=== PATIENT | female | born 1950 | race Hispanic/Latino ===

== ENCOUNTER → 2018-02-06 | Outpatient (CLI) | payer OTHER, MEDICARE ==
[~2018-02-06] MED LIST: BUPR150T8 PO; GABA-531 PO; IBUP-2070 PO; LEVO500T2 PO; LEVO88TA4 PO; PANT40TA25 PO; PRED10TA3 PO; SENN15TA PO
== END | disposition home or self-care (01) ==
LOC: RAH 08:38
PROVIDERS: ATTEND Family Medicine
DX: Z12.31 Encounter for screening mammogram for malignant neoplasm of breast (principal); I10 Essential (primary) hypertension; E11.9 Type 2 diabetes mellitus without complications; E78.00 Pure hypercholesterolemia, unspecified; E03.9 Hypothyroidism, unspecified
CPT/HCPCS: 77067

== ENCOUNTER → 2019-07-09 | Outpatient (CLI) | payer OTHER, MEDICARE | END | disposition home or self-care (01) | LOC: RAH 10:16 | PROVIDERS: ATTEND Family Medicine | DX: Z12.31 Encounter for screening mammogram for malignant neoplasm of breast (principal) | CPT/HCPCS: 77067 ==

== ENCOUNTER 2020-02-23 13:08 | Emergency (ER) | payer OTHER, MEDICARE ==
[~2020-02-23 13:08] MED LIST changes: -PANT40TA25 PO; +PANT40TA54 PO
[2020-02-23] MEDS ORDERED: SODIUM CHLORIDE 0.9% 500ML 500 ML IV ONE (13:45)
[2020-02-23] MEDS ORDERED: ONDANSETRON HCL 4 MG/2 ML VIAL ONE (13:45)
[2020-02-23 13:54] LABS: BASOPHILS % (AUTO) 1.1 % (0.0-5.0); HEMATOCRIT 37.3 % (36-48); LYMPHOCYTES % (AUTO) 34.6 % (21.0-51.0); MEAN CORPUSCULAR HEMOGLOBIN 29.6 pg (27.0-33.0); MEAN CORPUSCULAR HGB CONC 32.7 g/dL (32.0-36.0); MEAN CORPUSCULAR VOLUME 90.5 fL (79-99); PLATELET COUNT (AUTO) 247 K/uL (130-400); RED BLOOD CELL COUNT(AUTO) 4.12 MIL/uL (4.00-5.50); RED CELL DISTRIBUTION WIDTH 14.8 % (11.0-15.5); WHITE BLOOD COUNT (AUTO) 9.6 K/uL (4.8-10.8)
[2020-02-23 13:59] LABS: INR 0.96 (0.85-1.15); PARTIAL THROMBOPLASTIN TIME 26.8 SEC (26.3-35.5); PROTHROMBIN TIME 10.4 SEC (9.6-11.6)
[2020-02-23 14:09] LABS: ALBUMIN 3.3 g/dL (3.5-5.0); BILIRUBIN,DIRECT 0.1 mg/dL (0.0-0.3); BILIRUBIN,TOTAL 0.2 mg/dL (0.2-1.0); CREATININE 0.7 mg/dL (0.5-1.5); POTASSIUM 3.3 mmol/L (3.5-5.1); TOTAL PROTEIN, SERUM 7.5 g/dL (6.0-8.3)
[2020-02-23 14:15] LABS: APPEARANCE,URINE Clear (CLEAR); BILIRUBIN,URINE Negative (NEGATIVE); COLOR,URINE Yellow (YELLOW); GLUCOSE, URINE (UA) Negative (NEGATIVE); KETONES,URINE Negative (NEGATIVE); LEUKOCYTE ESTERASE ,URINE Trace (NEGATIVE); NITRATE,URINE Negative (NEGATIVE); OCCULT BLOOD,URINE Negative (NEGATIVE); PROTEIN,URINE Negative (NEGATIVE)
[2020-02-23 14:30] LABS: RBC,URINE 0-1 /HPF (0-1)
[2020-02-23 14:31] LABS: BACTERIA,URINE Few /HPF (None Seen); MUCUS,URINE Rare LPF (None Seen); SQUAMOUS EPITHELIAL CELL,UR Few /HPF (0-2)
== END 2020-02-23 15:03 | disposition home or self-care (01) ==
LOC: EDH 13:08
DX: R10.9 Unspecified abdominal pain (principal); R11.2 Nausea with vomiting, unspecified; M19.90 Unspecified osteoarthritis, unspecified site
CPT/HCPCS: 36415; 74176; 80048; 80076; 81001; 82550; 83690; 84484; 85025; 85610; 85730; 93005; 96360; 99285; J2405; J7040

== ENCOUNTER → 2020-12-20 | Outpatient (CLI) | payer OTHER, MEDICARE | END | disposition home or self-care (01) | LOC: RAH 09:41 | PROVIDERS: ATTEND Family Medicine | DX: Z12.31 Encounter for screening mammogram for malignant neoplasm of breast (principal) | CPT/HCPCS: 77067 ==

== ENCOUNTER 2021-07-31 01:36 | Inpatient (IN) | payer OTHER, MEDICARE ==
[~2021-07-31] VITALS: Ht 152.4 cm; Wt 58.3 kg
[2021-07-31] MEDS ORDERED: ONDANSETRON 4MG INJ ONE (02:12)
[2021-07-31] MEDS ORDERED: MORPHINE 4 MG SYG IV ONE (02:30)
[2021-07-31] MEDS: ZOSYN 3.375GM +NS 50ML IV SCH ×3 (02:30→18:12)
[2021-07-31] MEDS ORDERED: ONDANSETRON 4MG INJ IVP ONE (02:30)
[2021-07-31 02:32] LABS: BASOPHILS % (AUTO) 0.7 % (0.0-5.0); EOSINOPHILS % (AUTO) 5.4 % (0.0-8.0); HEMATOCRIT 44.9 % (36-48); LYMPHOCYTES % (AUTO) 37.5 % (21.0-51.0); MEAN CORPUSCULAR HEMOGLOBIN 31.6 pg (27.0-33.0); MEAN CORPUSCULAR HGB CONC 33.2 g/dL (32.0-36.0); MEAN CORPUSCULAR VOLUME 95.3 fL (79-99); MONOCYTES % (AUTO) 5.4 % (3.0-13.0); NEUTROPHILS % (AUTO) 50.6 % (40.0-77.0); PLATELET COUNT (AUTO) 292 K/uL (130-400); RED BLOOD CELL COUNT(AUTO) 4.71 MIL/uL (4.00-5.50); RED CELL DISTRIBUTION WIDTH 13.1 % (11.0-15.5); WHITE BLOOD COUNT (AUTO) 13.5 K/uL (4.8-10.8)
[2021-07-31] MEDS ORDERED: MORPHINE 4 MG SYG ONE (02:39)
[2021-07-31] MEDS ORDERED: ZOSYN 3.375GM+NS 50ML 50 ML ONE (02:39)
[2021-07-31] MEDS ORDERED: METRONIDAZOLE 500MG/100ML BAG 100 ML ONE (02:39)
[2021-07-31 02:43] LABS: APPEARANCE,URINE Clear (CLEAR); BILIRUBIN,URINE Negative (NEGATIVE); COLOR,URINE Yellow (YELLOW); GLUCOSE, URINE (UA) Negative (NEGATIVE); KETONES,URINE Negative (NEGATIVE); LEUKOCYTE ESTERASE ,URINE Negative (NEGATIVE); NITRATE,URINE Negative (NEGATIVE); OCCULT BLOOD,URINE Trace (NEGATIVE); PH,URINE 7.5 (5.0-8.0); PROTEIN,URINE Negative (NEGATIVE); UROBILINOGEN,URINE 0.2 mg/dL (0.2-1.0)
[2021-07-31 02:58] LABS: BACTERIA,URINE Few /HPF (None Seen); SQUAMOUS EPITHELIAL CELL,UR 0-2 /HPF (0-2); WBC,URINE 0-1 /HPF (0-1)
[2021-07-31] MEDS: METRONIDAZOLE 500MG/100ML BAG 100 ML IVPB SCH ×3 (03:03→22:52)
[2021-07-31 03:30] LABS: CREATININE 0.6 mg/dL (0.5-1.5); POTASSIUM 3.1 mmol/L (3.5-5.1)
[2021-07-31 03:34] LABS: ALBUMIN 3.6 g/dL (3.5-5.0); BILIRUBIN,TOTAL 0.3 mg/dL (0.2-1.0); TOTAL PROTEIN, SERUM 7.6 g/dL (6.0-8.3)
[2021-07-31] MEDS ORDERED: KETOROLAC 30MG VIAL (30MG/ML) ONE (04:44)
[2021-07-31] MEDS ORDERED: KETOROLAC 30MG VIAL (30MG/ML) IV ONE (05:00)
[2021-07-31] MEDS ORDERED: POTASSIUM CHLORIDE 10MEQ/100ML 10 MEQ/100 ML ML IV STA (05:31)
[2021-07-31] MEDS ORDERED: LACTATED RINGERS 1000ML 1,000 ML IV ONE (05:38)
[2021-07-31] MEDS ORDERED: POTASSIUM CHLORIDE 10MEQ/100ML 100 ML IV ONE (05:38)
[2021-07-31] MEDS: LACTATED RINGERS 1000ML 1,000 ML IV SCH ×4 (05:52→16:30)
[2021-07-31] MEDS ORDERED: POTASSIUM CHLORIDE 20MEQ/100ML 100 ML IV PRN (06:00)
[2021-07-31] MEDS ORDERED: MAGNESIUM 2GM PREMIX 50ML 50 ML IV PRN (06:00)
[2021-07-31] MEDS ORDERED: GLUCAGON 1MG KIT 1 MG ML IM PRN (06:00)
[2021-07-31] MEDS ORDERED: DEXTROSE 50%-WATER 50 ML DISP.SYRIN IV PRN (06:00)
[2021-07-31] MEDS ORDERED: HYDRALAZINE 20MG/ML VIAL IV PRN (06:30)
[2021-07-31] MEDS ORDERED: ACETAMINOPHEN 325 MG TAB PO PRN ×2 (06:30)
[2021-07-31] MEDS ORDERED: ONDANSETRON 4MG INJ IV PRN (06:30)
[2021-07-31] MEDS ORDERED: NITROGLYCERIN 0.4 MG SL TAB SL PRN (06:30)
[2021-07-31] MEDS ORDERED: ACETAMINOPHEN 650 MG SUPPOSITORY RC PRN (06:30)
[2021-07-31] MEDS ORDERED: LABETALOL 20MG SYG IV PRN (06:30)
[2021-07-31] MEDS ORDERED: POTASSIUM CHLORIDE 10% ELIXIR 20 MEQ/15 ML UDCUP NG ONE (07:00)
[2021-07-31] MEDS: INSULIN HUMULIN R 100 UNIT/ML 3ML SQ SCH ×4 (07:24→20:33)
[2021-07-31] MEDS: LEVOTHYROXINE 88 MCG TABLET PO SCH (08:12)
[2021-07-31] MEDS: PANTOPRAZOLE 40 MG/VIAL IVP SCH ×2 (08:22→20:33)
[2021-07-31 09:14] LABS: BASOPHILS % (AUTO) 0.8 % (0.0-5.0); EOSINOPHILS % (AUTO) 5.7 % (0.0-8.0); HEMATOCRIT 38.9 % (36-48); LYMPHOCYTES % (AUTO) 27.8 % (21.0-51.0); MEAN CORPUSCULAR HEMOGLOBIN 31.4 pg (27.0-33.0); MEAN CORPUSCULAR HGB CONC 32.9 g/dL (32.0-36.0); MEAN CORPUSCULAR VOLUME 95.3 fL (79-99); MONOCYTES % (AUTO) 5.9 % (3.0-13.0); NEUTROPHILS % (AUTO) 59.5 % (40.0-77.0); PLATELET COUNT (AUTO) 243 K/uL (130-400); RED BLOOD CELL COUNT(AUTO) 4.08 MIL/uL (4.00-5.50); RED CELL DISTRIBUTION WIDTH 13.1 % (11.0-15.5); WHITE BLOOD COUNT (AUTO) 11.5 K/uL (4.8-10.8)
[2021-07-31 09:42] LABS: CREATININE 0.6 mg/dL (0.5-1.5); POTASSIUM 4.7 mmol/L (3.5-5.1); THYROID STIMULATING HORMONE 1.73 uIU/mL (0.36-3.74)
[2021-07-31 10:30] VITALS: BP 133/63
[2021-07-31] MEDS ORDERED: KETOROLAC 15MG/ML VIAL (15MG/ML) ONE (11:05)
[2021-07-31] MEDS: KETOROLAC 15MG/ML VIAL (15MG/ML) IV PRN ×2 (11:08→18:52)
[2021-07-31] MEDS ORDERED: HYDROMORPHONE 0.5 MG SYG (0.5MG/0.5ML) IVP PRN (12:00)
[2021-07-31 16:27] VITALS: BP 133/59
[2021-07-31 20:00] VITALS: BP 130/59
[2021-07-31] MEDS: METOCLOPRAMIDE 10 MG/2 ML VIAL IVP SCH (20:33)
[2021-07-31] MEDS: DEXTROSE 5 %-0.45 % NACL 1,000 ML IV SCH (20:34)
[2021-07-31 23:27] VITALS: BP 143/57
[2021-08-01] MEDS: ZOSYN 3.375GM +NS 50ML IV SCH ×3 (02:48→19:05)
[2021-08-01 04:00] VITALS: BP 139/62
[2021-08-01 05:05] LABS: BASOPHILS % (AUTO) 0.9 % (0.0-5.0); EOSINOPHILS % (AUTO) 5.7 % (0.0-8.0); HEMATOCRIT 37.2 % (36-48); LYMPHOCYTES % (AUTO) 25.4 % (21.0-51.0); MEAN CORPUSCULAR HEMOGLOBIN 30.4 pg (27.0-33.0); MEAN CORPUSCULAR HGB CONC 33.1 g/dL (32.0-36.0); MEAN CORPUSCULAR VOLUME 92.1 fL (79-99); MONOCYTES % (AUTO) 5.1 % (3.0-13.0); NEUTROPHILS % (AUTO) 62.6 % (40.0-77.0); PLATELET COUNT (AUTO) 228 K/uL (130-400); RED BLOOD CELL COUNT(AUTO) 4.04 MIL/uL (4.00-5.50); RED CELL DISTRIBUTION WIDTH 12.9 % (11.0-15.5)
[2021-08-01 05:22] LABS: ALBUMIN 3.1 g/dL (3.5-5.0); BILIRUBIN,TOTAL 0.4 mg/dL (0.2-1.0); CREATININE 0.5 mg/dL (0.5-1.5); POTASSIUM 3.5 mmol/L (3.5-5.1); TOTAL PROTEIN, SERUM 6.7 g/dL (6.0-8.3)
[2021-08-01] MEDS: INSULIN HUMULIN R 100 UNIT/ML 3ML SQ SCH ×4 (06:22→20:54)
[2021-08-01] MEDS: LEVOTHYROXINE 88 MCG TABLET PO SCH (06:22)
[2021-08-01] MEDS: METRONIDAZOLE 500MG/100ML BAG 100 ML IVPB SCH ×3 (06:23→21:45)
[2021-08-01 08:00] VITALS: BP 118/63
[2021-08-01] MEDS: METOCLOPRAMIDE 10 MG/2 ML VIAL IVP SCH ×2 (10:10→20:47)
[2021-08-01] MEDS: PANTOPRAZOLE 40 MG/VIAL IVP SCH ×2 (10:10→20:47)
[2021-08-01] MEDS ORDERED: QUETIAPINE FUMARATE 25 MG TAB PO PRN (11:30)
[2021-08-01 11:45] VITALS: BP 137/60
[2021-08-01 16:00] VITALS: BP 123/62
[2021-08-01 20:00] VITALS: BP 139/62
[2021-08-01] MEDS: DEXTROSE 5 %-0.45 % NACL 1,000 ML IV SCH (21:45)
[2021-08-02] VITALS (18 sets, daily range): BP systolic 112–144; BP diastolic 50–96
[2021-08-02] MEDS: ZOSYN 3.375GM +NS 50ML IV SCH ×3 (03:04→18:30)
[2021-08-02 05:14] LABS: EOSINOPHILS % (AUTO) 8.4 % (0.0-8.0); LYMPHOCYTES % (AUTO) 19.5 % (21.0-51.0); MEAN CORPUSCULAR HEMOGLOBIN 30.1 pg (27.0-33.0); MEAN CORPUSCULAR HGB CONC 32.3 g/dL (32.0-36.0); MEAN CORPUSCULAR VOLUME 93.5 fL (79-99); MONOCYTES % (AUTO) 6.3 % (3.0-13.0); NEUTROPHILS % (AUTO) 64.6 % (40.0-77.0); PLATELET COUNT (AUTO) 226 K/uL (130-400); RED BLOOD CELL COUNT(AUTO) 4.28 MIL/uL (4.00-5.50); RED CELL DISTRIBUTION WIDTH 12.8 % (11.0-15.5); WHITE BLOOD COUNT (AUTO) 10.1 K/uL (4.8-10.8)
[2021-08-02] MEDS: LEVOTHYROXINE 88 MCG TABLET PO SCH (05:30)
[2021-08-02 05:32] LABS: ALBUMIN 3.2 g/dL (3.5-5.0); BILIRUBIN,TOTAL 0.5 mg/dL (0.2-1.0); CREATININE 0.6 mg/dL (0.5-1.5); POTASSIUM 3.1 mmol/L (3.5-5.1); TOTAL PROTEIN, SERUM 6.9 g/dL (6.0-8.3)
[2021-08-02] MEDS: METRONIDAZOLE 500MG/100ML BAG 100 ML IVPB SCH ×2 (05:33→15:52)
[2021-08-02] MEDS: INSULIN HUMULIN R 100 UNIT/ML 3ML SQ SCH ×4 (06:19→23:58)
[2021-08-02] MEDS: DEXTROSE 5 %-0.45 % NACL 1,000 ML IV SCH (11:00)
[2021-08-02] MEDS: PANTOPRAZOLE 40 MG/VIAL IVP SCH (11:51)
[2021-08-02] MEDS: METOCLOPRAMIDE 10 MG/2 ML VIAL IVP SCH ×2 (11:52→23:54)
[2021-08-02] MEDS ORDERED: LACTATED RINGERS 1000ML 1,000 ML IV ONE (18:46)
[2021-08-02] MEDS ORDERED: MIDAZOLAM HCL 1 MG/ML 2ML VIAL ONE (19:02)
[2021-08-02] MEDS ORDERED: ROCURONIUM 10MG/1ML SYR 10 MG/ML ML ONE (19:02)
[2021-08-02] MEDS ORDERED: PROPOFOL 10 MG/ML 20ML VIAL IV ONE (19:02)
[2021-08-02] MEDS ORDERED: FENTANYL CITRATE PF 50 MCG/1 ML 5ML AMP IV ONE (19:02)
[2021-08-02] MEDS ORDERED: SUCCINYLCHOLINE CHLORIDE 20 MG/ML 10 ML VIAL ONE (19:02)
[2021-08-02] MEDS ORDERED: EPHEDRINE SULFATE 50 MG/ML AMPULE ONE (19:23)
[2021-08-02] MEDS ORDERED: ROPIVACAINE 0.5% 5MG/ML 30ML IJ ONE (21:25)
[2021-08-02] MEDS: LACTATED RINGERS 1000ML 1,000 ML IV SCH (22:00)
[2021-08-02] MEDS ORDERED: ESMOLOL HCL 10 MG/ML 10 ML VIAL ONE (22:14)
[2021-08-02] MEDS ORDERED: MORPHINE PCA 50MG/50ML NS IV SCH (23:00)
[2021-08-03] VITALS (11 sets, daily range): BP systolic 102–134; BP diastolic 51–71
[2021-08-03] MEDS: DEXTROSE 5 %-0.45 % NACL 1,000 ML IV SCH (00:20)
[2021-08-03] MEDS: ZOSYN 3.375GM +NS 50ML IV SCH ×3 (03:23→17:35)
[2021-08-03] MEDS ORDERED: POTASSIUM CHLORIDE 10MEQ/100ML 10 MEQ/100 ML ML IV SCH (03:30)
[2021-08-03] MEDS: INSULIN HUMULIN R 100 UNIT/ML 3ML SQ SCH ×3 (06:17→16:30)
[2021-08-03] MEDS: LEVOTHYROXINE 100MCG VIAL IV SCH (06:17)
[2021-08-03] MEDS: LACTATED RINGERS 1000ML 1,000 ML IV SCH ×3 (06:27→18:19)
[2021-08-03] MEDS: POTASSIUM CHLORIDE 10MEQ/100ML 100 ML IV PRN (06:28)
[2021-08-03] MEDS: LIDOCAINE HCL-MPF 1% 2ML VIAL IJ PRN (06:28)
[2021-08-03] MEDS: FAMOTIDINE 20MG VIAL IV SCH ×2 (10:03→20:30)
[2021-08-03] MEDS: METOCLOPRAMIDE 10 MG/2 ML VIAL IVP SCH ×2 (10:04→20:30)
[2021-08-03] MEDS: HEPARIN 5,000 UNIT VIAL SQ SCH ×2 (10:04→20:38)
[2021-08-03 12:00] LABS: HEMATOCRIT 36.3 % (36-48); MEAN CORPUSCULAR HEMOGLOBIN 30.9 pg (27.0-33.0); MEAN CORPUSCULAR HGB CONC 32.5 g/dL (32.0-36.0); PLATELET COUNT (AUTO) 232 K/uL (130-400); RED BLOOD CELL COUNT(AUTO) 3.82 MIL/uL (4.00-5.50); RED CELL DISTRIBUTION WIDTH 13.1 % (11.0-15.5); WHITE BLOOD COUNT (AUTO) 15.4 K/uL (4.8-10.8)
[2021-08-03] MEDS ORDERED: LACTATED RINGERS 1000ML IV SCH (12:00)
[2021-08-03 12:09] LABS: CREATININE 0.8 mg/dL (0.5-1.5); MAGNESIUM 1.9 mg/dL (1.80-2.40); POTASSIUM 3.5 mmol/L (3.5-5.1)
[2021-08-03 12:41] LABS: INR 1.21 (0.85-1.15)
[2021-08-03 12:51] LABS: BAND NEUTROPHILS % (MANUAL) 4 % (0-2); LYMPHOCYTES % (MANUAL) 10 % (22-44); MAN.DIFF COMMENT-IMPRESSION MANUAL DIFFERENTIAL; MONOCYTES % (MANUAL) 1 % (2-9); PLATELET MORPHOLOGY COMMENT ADEQUATE; SEGMENTED NEUTROPHILS % 85 % (40-70)
[2021-08-04] MEDS: ZOSYN 3.375GM +NS 50ML IV SCH ×3 (02:06→20:12)
[2021-08-04] MEDS: LACTATED RINGERS 1000ML 1,000 ML IV SCH ×3 (03:37→21:27)
[2021-08-04 04:48] VITALS: BP 152/68
[2021-08-04 05:10] LABS: HEMATOCRIT 29.8 % (36-48); MEAN CORPUSCULAR HEMOGLOBIN 31.7 pg (27.0-33.0); MEAN CORPUSCULAR HGB CONC 33.2 g/dL (32.0-36.0); MEAN CORPUSCULAR VOLUME 95.5 fL (79-99); RED BLOOD CELL COUNT(AUTO) 3.12 MIL/uL (4.00-5.50); RED CELL DISTRIBUTION WIDTH 13.2 % (11.0-15.5); WHITE BLOOD COUNT (AUTO) 11.6 K/uL (4.8-10.8)
[2021-08-04 05:22] LABS: CREATININE 0.5 mg/dL (0.5-1.5); MAGNESIUM 2.4 mg/dL (1.80-2.40); PHOSPHORUS 1.8 mg/dL (2.5-4.9)
[2021-08-04] MEDS: INSULIN HUMULIN R 100 UNIT/ML 3ML SQ SCH ×3 (05:39→12:00)
[2021-08-04] MEDS: LEVOTHYROXINE 100MCG VIAL IV SCH (06:27)
[2021-08-04] MEDS: POTASSIUM CHLORIDE 10MEQ/100ML 100 ML IV PRN ×3 (06:28→21:32)
[2021-08-04 07:00] VITALS: BP 141/58
[2021-08-04] MEDS: FAMOTIDINE 20MG VIAL IV SCH ×2 (09:40→20:12)
[2021-08-04] MEDS: METOCLOPRAMIDE 10 MG/2 ML VIAL IVP SCH ×2 (09:40→20:13)
[2021-08-04] MEDS: HEPARIN 5,000 UNIT VIAL SQ SCH ×2 (09:42→20:22)
[2021-08-04 12:20] VITALS: BP 140/59
[2021-08-04 16:00] VITALS: BP 140/62
[2021-08-04] MEDS: LIDOCAINE HCL-MPF 1% 2ML VIAL IJ PRN (17:07)
[2021-08-04 20:52] VITALS: BP 157/63
[2021-08-05 00:37] VITALS: BP 144/68
[2021-08-05] MEDS: LACTATED RINGERS 1000ML 1,000 ML IV SCH (01:07)
[2021-08-05] MEDS: ZOSYN 3.375GM +NS 50ML IV SCH ×3 (02:15→18:25)
[2021-08-05 04:59] VITALS: BP 150/65
[2021-08-05 05:28] LABS: HEMATOCRIT 28.2 % (36-48); MEAN CORPUSCULAR HEMOGLOBIN 31.1 pg (27.0-33.0); MEAN CORPUSCULAR VOLUME 94.3 fL (79-99); RED BLOOD CELL COUNT(AUTO) 2.99 MIL/uL (4.00-5.50); RED CELL DISTRIBUTION WIDTH 12.7 % (11.0-15.5); WHITE BLOOD COUNT (AUTO) 11.4 K/uL (4.8-10.8)
[2021-08-05 05:47] LABS: CREATININE 0.4 mg/dL (0.5-1.5); POTASSIUM 3.1 mmol/L (3.5-5.1)
[2021-08-05] MEDS: LEVOTHYROXINE 100MCG VIAL IV SCH (05:50)
[2021-08-05] MEDS: POTASSIUM CHLORIDE 10MEQ/100ML 100 ML IV PRN (05:50)
[2021-08-05] MEDS: INSULIN HUMULIN R 100 UNIT/ML 3ML SQ SCH ×5 (05:51→20:28)
[2021-08-05 08:00] VITALS: BP 139/59
[2021-08-05] MEDS: HEPARIN 5,000 UNIT VIAL SQ SCH ×2 (10:15→21:05)
[2021-08-05] MEDS: METOCLOPRAMIDE 10 MG/2 ML VIAL IVP SCH ×2 (10:16→20:39)
[2021-08-05] MEDS: FAMOTIDINE 20MG VIAL IV SCH ×2 (10:17→20:39)
[2021-08-05] MEDS ORDERED: IBUPROFEN 600 MG TABLET PO PRN (10:30)
[2021-08-05] MEDS ORDERED: POTASSIUM CHLORIDE 20MEQ/100ML 100 ML IV PRN (10:30)
[2021-08-05] MEDS ORDERED: TRAMADOL HCL 50 MG TABLET PO PRN ×2 (10:30)
[2021-08-05] MEDS ORDERED: ACETAMINOPHEN 325 MG TAB PO PRN (10:30)
[2021-08-05] MEDS ORDERED: KCL 20 MEQ ERTAB PO PRN (10:30)
[2021-08-05] MEDS ORDERED: LIDOCAINE HCL-MPF 1% 2ML VIAL IV PRN (10:30)
[2021-08-05 12:00] VITALS: BP 145/60
[2021-08-05 16:00] VITALS: BP 147/62
[2021-08-05] MEDS: POTASSIUM CHLORIDE 10% ELIXIR 20 MEQ/15 ML UDCUP PO PRN (16:16)
[2021-08-05 20:00] VITALS: BP 149/52
[2021-08-06] VITALS: BP 131/57
[2021-08-06] MEDS: ZOSYN 3.375GM +NS 50ML IV SCH ×3 (02:16→19:12)
[2021-08-06 04:00] VITALS: BP 126/61
[2021-08-06 05:18] LABS: HEMATOCRIT 29.3 % (36-48); MEAN CORPUSCULAR HEMOGLOBIN 30.7 pg (27.0-33.0); MEAN CORPUSCULAR HGB CONC 33.1 g/dL (32.0-36.0); MEAN CORPUSCULAR VOLUME 92.7 fL (79-99); RED BLOOD CELL COUNT(AUTO) 3.16 MIL/uL (4.00-5.50); RED CELL DISTRIBUTION WIDTH 12.6 % (11.0-15.5)
[2021-08-06 05:32] LABS: CREATININE 0.4 mg/dL (0.5-1.5)
[2021-08-06] MEDS: POTASSIUM CHLORIDE 10MEQ/100ML 100 ML IV PRN (06:14)
[2021-08-06] MEDS: LEVOTHYROXINE 100MCG VIAL IV SCH (06:30)
[2021-08-06] MEDS: INSULIN HUMULIN R 100 UNIT/ML 3ML SQ SCH ×4 (07:03→20:58)
[2021-08-06 08:00] VITALS: BP_SYST 122; BP_SYST 141; BP_DIAS 53; BP_DIAS 74
[2021-08-06] MEDS: POTASSIUM CHLORIDE 10% ELIXIR 20 MEQ/15 ML UDCUP PO PRN ×2 (09:56→20:30)
[2021-08-06] MEDS: FAMOTIDINE 20MG VIAL IV SCH ×2 (09:57→20:29)
[2021-08-06] MEDS: METOCLOPRAMIDE 10 MG/2 ML VIAL IVP SCH ×2 (09:57→20:29)
[2021-08-06] MEDS: POLYETHYLENE GLYCOL 3350 17 GM POWD.PACK PO SCH (09:57)
[2021-08-06] MEDS: HEPARIN 5,000 UNIT VIAL SQ SCH ×2 (10:13→20:29)
[2021-08-06 12:00] VITALS: BP 127/52
[2021-08-06 16:00] VITALS: BP 132/55
[2021-08-06 20:00] VITALS: BP 126/55
[2021-08-07] VITALS: BP 121/60
[2021-08-07] MEDS: ZOSYN 3.375GM +NS 50ML IV SCH ×2 (02:44→11:20)
[2021-08-07 04:00] VITALS: BP 121/81
[2021-08-07 05:19] LABS: HEMATOCRIT 32.4 % (36-48); MEAN CORPUSCULAR HEMOGLOBIN 31.4 pg (27.0-33.0); RED BLOOD CELL COUNT(AUTO) 3.41 MIL/uL (4.00-5.50); RED CELL DISTRIBUTION WIDTH 12.8 % (11.0-15.5); WHITE BLOOD COUNT (AUTO) 8.7 K/uL (4.8-10.8)
[2021-08-07 05:27] LABS: CREATININE 0.5 mg/dL (0.5-1.5); POTASSIUM 3.7 mmol/L (3.5-5.1)
[2021-08-07] MEDS: POTASSIUM CHLORIDE 10% ELIXIR 20 MEQ/15 ML UDCUP PO PRN ×2 (05:51→09:12)
[2021-08-07] MEDS: LEVOTHYROXINE 100MCG VIAL IV SCH (06:27)
[2021-08-07] MEDS: INSULIN HUMULIN R 100 UNIT/ML 3ML SQ SCH ×3 (06:38→16:30)
[2021-08-07 07:57] VITALS: BP 124/56
[2021-08-07] MEDS ORDERED: ACET-2743 PO (09:09)
[2021-08-07] MEDS ORDERED: AMOX-426 PO (09:09)
[2021-08-07] MEDS: FAMOTIDINE 20MG VIAL IV SCH (09:11)
[2021-08-07] MEDS: HEPARIN 5,000 UNIT VIAL SQ SCH (09:12)
[2021-08-07] MEDS: METOCLOPRAMIDE 10 MG/2 ML VIAL IVP SCH (09:12)
[2021-08-07] MEDS: POLYETHYLENE GLYCOL 3350 17 GM POWD.PACK PO SCH (09:12)
[2021-08-07 12:00] VITALS: BP 126/56
== END 2021-08-07 18:00 | disposition home or self-care (01) | DRG 328 ==
LOC: EDH 01:36 → OBSVTOIN 04:59 → EDHIP 04:59 → 3AH 10:24
PROVIDERS: ADMIT Internal Medicine Pulmonary Disease; ATTEND Internal Medicine Pulmonary Disease
PROC: 0DN60ZZ Release Stomach, Open Approach (ICD-10-PCS; principal; 2021-08-02 19:37)
PROC: 0DB80ZZ Excision of Small Intestine, Open Approach (ICD-10-PCS; 2021-08-02 19:37)
PROC: 0DBN0ZZ Excision of Sigmoid Colon, Open Approach (ICD-10-PCS; 2021-08-02 19:37)
PROC: 0D1N0Z4 Bypass Sigmoid Colon to Cutaneous, Open Approach (ICD-10-PCS; 2021-08-02 19:37)
PROC: 0DBU0ZZ Excision of Omentum, Open Approach (ICD-10-PCS; 2021-08-02 19:37)
PROC: 0DQN0ZZ Repair Sigmoid Colon, Open Approach (ICD-10-PCS; 2021-08-02 19:37)
DX: K56.699 Other intestinal obstruction unspecified as to partial versus complete obstruction (principal); K62.4 Stenosis of anus and rectum; E78.5 Hyperlipidemia, unspecified; Z20.822 Contact with and (suspected) exposure to COVID-19; M19.90 Unspecified osteoarthritis, unspecified site; E78.00 Pure hypercholesterolemia, unspecified; K21.9 Gastro-esophageal reflux disease without esophagitis; D72.829 Elevated white blood cell count, unspecified; M41.9 Scoliosis, unspecified; E87.6 Hypokalemia; E03.9 Hypothyroidism, unspecified; R53.81 Other malaise; E66.9 Obesity, unspecified; I10 Essential (primary) hypertension; K66.0 Peritoneal adhesions (postprocedural) (postinfection); Z68.25 Body mass index [BMI] 25.0-25.9, adult; Z79.890 Hormone replacement therapy; Z79.899 Other long term (current) drug therapy; Z90.49 Acquired absence of other specified parts of digestive tract; Z83.3 Family history of diabetes mellitus; Z82.3 Family history of stroke; Z80.9 Family history of malignant neoplasm, unspecified; Z82.49 Family history of ischemic heart disease and other diseases of the circulatory system; Z87.19 Personal history of other diseases of the digestive system; K57.30 Diverticulosis of large intestine without perforation or abscess without bleeding
CPT/HCPCS: 36415; 71045; 74018; 74176; 74270; 80048; 80053; 81001; 82948; 83735; 84100; 84132; 84145; 84443; 85025; 85027; 85610; 86850; 86900; 86901; 87635; 97039; A4344; C1894; C9113; G0378; J0330; J1170; J1644; J1885; J2250; J2270; J2405; J2543; J2704; J2765; J2795; J3010; J3475; J3480; J3490; J7042; J7120

== ENCOUNTER 2021-08-19 00:48 | Inpatient (IN) | payer OTHER, MEDICARE ==
[~2021-08-19] VITALS: Ht 152.4 cm; Wt 59.0 kg
[~2021-08-19 00:48] MED LIST changes: +ACET-2743 PO; +AMOX-426 PO; +BUPR-113 PO; -BUPR150T8 PO; -IBUP-2070 PO; -LEVO500T2 PO; -PRED10TA3 PO
[2021-08-19] MEDS ORDERED: ONDANSETRON 4MG INJ IVP ONE (01:00)
[2021-08-19] MEDS ORDERED: METOCLOPRAMIDE 10 MG/2 ML VIAL IVP ONE (01:00)
[2021-08-19] MEDS ORDERED: FAMOTIDINE 20MG VIAL IV ONE (01:00)
[2021-08-19] MEDS ORDERED: PANTOPRAZOLE 40 MG/VIAL IVP ONE (01:00)
[2021-08-19] MEDS ORDERED: 0.9%NACL 1000ML 1,000 ML IV ONE ×2 (01:00→03:53)
[2021-08-19 01:31] LABS: BASOPHILS % (AUTO) 0.5 % (0.0-5.0); EOSINOPHILS % (AUTO) 1.3 % (0.0-8.0); HEMATOCRIT 35.8 % (36-48); MEAN CORPUSCULAR HEMOGLOBIN 31.4 pg (27.0-33.0); MEAN CORPUSCULAR VOLUME 95.2 fL (79-99); MONOCYTES % (AUTO) 5.7 % (3.0-13.0); NEUTROPHILS % (AUTO) 83.2 % (40.0-77.0); PLATELET COUNT (AUTO) 218 K/uL (130-400); RED BLOOD CELL COUNT(AUTO) 3.76 MIL/uL (4.00-5.50); RED CELL DISTRIBUTION WIDTH 14.6 % (11.0-15.5); WHITE BLOOD COUNT (AUTO) 14.5 K/uL (4.8-10.8)
[2021-08-19] MEDS ORDERED: MORPHINE 2 MG SYG ONE ×2 (01:36→06:02)
[2021-08-19 01:47] LABS: CREATININE 0.7 mg/dL (0.5-1.5); POTASSIUM 3.5 mmol/L (3.5-5.1)
[2021-08-19 01:52] LABS: ALBUMIN 3.2 g/dL (3.5-5.0); BILIRUBIN,TOTAL 0.3 mg/dL (0.2-1.0); TOTAL PROTEIN, SERUM 7.5 g/dL (6.0-8.3)
[2021-08-19] MEDS ORDERED: MORPHINE 2 MG SYG IVP ONE (02:00)
[2021-08-19] MEDS ORDERED: IOHEXOL 350 MG/ML 100ML INFUS..BTL IV ONE (02:00)
[2021-08-19] MEDS ORDERED: ZOSYN 3.375GM +NS 50ML IV ONE (03:00)
[2021-08-19 03:08] LABS: APPEARANCE,URINE Clear (CLEAR); BILIRUBIN,URINE Negative (NEGATIVE); COLOR,URINE Yellow (YELLOW); GLUCOSE, URINE (UA) Negative (NEGATIVE); KETONES,URINE Negative (NEGATIVE); LEUKOCYTE ESTERASE ,URINE Negative (NEGATIVE); NITRATE,URINE Negative (NEGATIVE); OCCULT BLOOD,URINE Negative (NEGATIVE); PH,URINE 7.5 (5.0-8.0); PROTEIN,URINE Negative (NEGATIVE); UROBILINOGEN,URINE 0.2 mg/dL (0.2-1.0)
[2021-08-19] MEDS ORDERED: 0.9%NACL 50ML 50 ML IV ONE (03:44)
[2021-08-19] MEDS: ENOXAPARIN SODIUM 30 MG/0.3 ML SQ SCH (09:21)
[2021-08-19] MEDS ORDERED: FENTANYL CITRATE PF 50 MCG/1 ML 2ML VIAL IVP STA (13:23)
[2021-08-19] MEDS ORDERED: FENTANYL CITRATE PF 50 MCG/1 ML 2ML VIAL IVP PRN (17:00)
[2021-08-19] MEDS ORDERED: VANCOMYCIN PROTOCOL PER PHARMACY IV SCH (17:30)
[2021-08-19] MEDS: MEROPENEM 1 GM VIAL IVP SCH (17:44)
[2021-08-19] MEDS ORDERED: VANCOMYCIN 1G/250ML KIT 250 ML IV ONE (18:00)
[2021-08-19] MEDS ORDERED: VANCOMYCIN 500MG+NS 100ML 100 ML IV SCH (18:00)
[2021-08-19 18:43] VITALS: BP 123/56
[2021-08-19] MEDS ORDERED: NITROGLYCERIN 0.4 MG SL TAB SL PRN (20:30)
[2021-08-19] MEDS ORDERED: ONDANSETRON 4MG INJ IVP PRN (20:30)
[2021-08-19] MEDS ORDERED: PROMETHAZINE HCL 25 MG/ML 1ML AMPULE IM PRN (20:30)
[2021-08-19] MEDS ORDERED: 0.9%NACL 1000ML 1,000 ML IV SCH (20:30)
[2021-08-19] MEDS ORDERED: ACETAMINOPHEN 325 MG SUPPOSITORY RC PRN (20:30)
[2021-08-19 20:48] LABS: MAGNESIUM 1.9 mg/dL (1.80-2.40); POTASSIUM 3.2 mmol/L (3.5-5.1)
[2021-08-19] MEDS: HYDROMORPHONE 0.5 MG SYG (0.5MG/0.5ML) IVP PRN (20:48)
[2021-08-20 00:10] VITALS: BP 122/55
[2021-08-20] MEDS: MEROPENEM 1 GM VIAL IVP SCH ×3 (01:11→18:18)
[2021-08-20] MEDS: LIDOCAINE HCL-MPF 1% 2ML VIAL IV PRN ×2 (01:16→05:12)
[2021-08-20] MEDS: POTASSIUM CHLORIDE 20MEQ/100ML 100 ML IV PRN ×2 (01:17→05:12)
[2021-08-20] MEDS: MAGNESIUM 2GM PREMIX 50ML 50 ML IV PRN (01:17)
[2021-08-20 04:12] VITALS: BP 120/56
[2021-08-20 04:15] LABS: BASOPHILS % (AUTO) 0.6 % (0.0-5.0); EOSINOPHILS % (AUTO) 4.6 % (0.0-8.0); HEMATOCRIT 33.6 % (36-48); LYMPHOCYTES % (AUTO) 17.5 % (21.0-51.0); MEAN CORPUSCULAR HEMOGLOBIN 30.1 pg (27.0-33.0); MEAN CORPUSCULAR VOLUME 97.1 fL (79-99); MONOCYTES % (AUTO) 6.8 % (3.0-13.0); NEUTROPHILS % (AUTO) 70.1 % (40.0-77.0); PLATELET COUNT (AUTO) 176 K/uL (130-400); RED BLOOD CELL COUNT(AUTO) 3.46 MIL/uL (4.00-5.50); RED CELL DISTRIBUTION WIDTH 14.8 % (11.0-15.5); WHITE BLOOD COUNT (AUTO) 13.6 K/uL (4.8-10.8)
[2021-08-20 04:42] LABS: ALBUMIN 2.2 g/dL (3.5-5.0); BILIRUBIN,TOTAL 0.3 mg/dL (0.2-1.0); CREATININE 0.4 mg/dL (0.5-1.5); MAGNESIUM 2.8 mg/dL (1.80-2.40); PHOSPHORUS 3.4 mg/dL (2.5-4.9); POTASSIUM 3.3 mmol/L (3.5-5.1); TOTAL PROTEIN, SERUM 5.6 g/dL (6.0-8.3)
[2021-08-20] MEDS ORDERED: 0.9% NACL 250ML 250 ML ONE (05:07)
[2021-08-20] MEDS: VANCOMYCIN 500MG+NS 100ML 100 ML IV SCH ×2 (05:43→18:16)
[2021-08-20] MEDS: HYDROMORPHONE 0.5 MG SYG (0.5MG/0.5ML) IVP PRN ×3 (05:45→23:13)
[2021-08-20 08:00] VITALS: BP 128/61
[2021-08-20] MEDS: PANTOPRAZOLE 40 MG/VIAL IVP SCH (09:41)
[2021-08-20] MEDS: FLUCONAZOLE 200 MG/NS 100 ML 100 ML IV SCH (09:41)
[2021-08-20] MEDS: NS-20 MEQ KCL 1000ML 1,000 ML IV SCH ×2 (09:41→20:57)
[2021-08-20] MEDS: ENOXAPARIN SODIUM 30 MG/0.3 ML SQ SCH (09:44)
[2021-08-20 12:00] VITALS: BP 123/59
[2021-08-20] MEDS ORDERED: BISACODYL 10 MG SUPP.RECT RC ONE (13:30)
[2021-08-20] MEDS ORDERED: LACTULOSE 20 GM/30 ML UDCUP PR SCH (14:00)
[2021-08-20] MEDS: MAGNESIUM HYDROXIDE 30 ML/UDCUP PO SCH (15:13)
[2021-08-20] MEDS ORDERED: LACTULOSE 20 GM/30 ML UDCUP PO ONE (15:30)
[2021-08-20 16:00] VITALS: BP 141/64
[2021-08-20] MEDS ORDERED: 0.9%NACL 100ML 100 ML ONE (18:12)
[2021-08-20 19:00] VITALS: BP 137/67
[2021-08-21] VITALS (7 sets, daily range): BP systolic 121–154; BP diastolic 55–67
[2021-08-21] MEDS: MEROPENEM 1 GM VIAL IVP SCH ×3 (01:42→18:09)
[2021-08-21] MEDS ORDERED: PANT20TA18 PO (02:35)
[2021-08-21] MEDS ORDERED: BACL10TA PO (02:35)
[2021-08-21] MEDS ORDERED: DICL100G31 TP (02:35)
[2021-08-21] MEDS ORDERED: TRAM-355 PO (02:35)
[2021-08-21] MEDS ORDERED: GABA-529 PO (02:35)
[2021-08-21] MEDS ORDERED: LEVO100C4 PO (02:35)
[2021-08-21] MEDS ORDERED: HYDROCHLOROQUINE PO (02:35)
[2021-08-21] MEDS ORDERED: AMOX500C2 PO (02:35)
[2021-08-21] MEDS ORDERED: LINA290C PO (02:35)
[2021-08-21] MEDS ORDERED: ATOR10 PO (02:35)
[2021-08-21] MEDS ORDERED: AMOX1TAB15 PO (02:35)
[2021-08-21 05:00] LABS: BASOPHILS % (AUTO) 0.5 % (0.0-5.0); EOSINOPHILS % (AUTO) 3.7 % (0.0-8.0); HEMATOCRIT 29.8 % (36-48); LYMPHOCYTES % (AUTO) 16.8 % (21.0-51.0); MEAN CORPUSCULAR HEMOGLOBIN 30.2 pg (27.0-33.0); MEAN CORPUSCULAR HGB CONC 31.5 g/dL (32.0-36.0); MEAN CORPUSCULAR VOLUME 95.8 fL (79-99); MONOCYTES % (AUTO) 6.1 % (3.0-13.0); NEUTROPHILS % (AUTO) 72.5 % (40.0-77.0); PLATELET COUNT (AUTO) 157 K/uL (130-400); RED BLOOD CELL COUNT(AUTO) 3.11 MIL/uL (4.00-5.50); RED CELL DISTRIBUTION WIDTH 14.3 % (11.0-15.5); WHITE BLOOD COUNT (AUTO) 13.6 K/uL (4.8-10.8)
[2021-08-21] MEDS ORDERED: 0.9%NACL 100ML 100 ML ONE (05:15)
[2021-08-21 05:17] LABS: ALBUMIN 2.1 g/dL (3.5-5.0); BILIRUBIN,TOTAL 0.5 mg/dL (0.2-1.0); CREATININE 0.5 mg/dL (0.5-1.5); MAGNESIUM 2.2 mg/dL (1.80-2.40); PHOSPHORUS 2.3 mg/dL (2.5-4.9); POTASSIUM 3.6 mmol/L (3.5-5.1); TOTAL PROTEIN, SERUM 5.8 g/dL (6.0-8.3)
[2021-08-21] MEDS: VANCOMYCIN 500MG+NS 100ML 100 ML IV SCH (05:44)
[2021-08-21] MEDS ORDERED: VANCOMYCIN 1G/250ML KIT 250 ML IV SCH (08:30)
[2021-08-21] MEDS: PANTOPRAZOLE 40 MG/VIAL IVP SCH (10:39)
[2021-08-21] MEDS: ENOXAPARIN SODIUM 30 MG/0.3 ML SQ SCH (10:40)
[2021-08-21] MEDS: FLUCONAZOLE 200 MG/NS 100 ML 100 ML IV SCH (12:36)
[2021-08-21] MEDS: MAGNESIUM HYDROXIDE 30 ML/UDCUP PO SCH (13:00)
[2021-08-21] MEDS: GABAPENTIN 100 MG CAPSULE PO SCH ×2 (13:17→21:29)
[2021-08-21] MEDS: HYDROMORPHONE 0.5 MG SYG (0.5MG/0.5ML) IVP PRN (13:19)
[2021-08-21] MEDS: NS-20 MEQ KCL 1000ML 1,000 ML IV SCH ×2 (15:24→21:30)
[2021-08-21] MEDS: VANCOMYCIN 750MG VIAL IVPB SCH (18:12)
[2021-08-21] MEDS: 0.9% NACL 250ML 250 ML IV SCH (18:21)
[2021-08-21] MEDS ORDERED: HYDROCHLOROQUINE PO SCH (21:00)
[2021-08-21] MEDS: HYDROXYCHLOROQUINE SULFATE 200 MG TAB PO SCH (21:29)
[2021-08-21] MEDS: ATORVASTATIN 10 MG TABLET PO SCH (21:29)
[2021-08-22] MEDS: BACLOFEN 10 MG TABLET PO PRN ×2 (00:29→20:41)
[2021-08-22] MEDS: MEROPENEM 1 GM VIAL IVP SCH ×3 (02:28→16:54)
[2021-08-22 03:56] LABS: BASOPHILS % (AUTO) 0.6 % (0.0-5.0); HEMATOCRIT 29.8 % (36-48); LYMPHOCYTES % (AUTO) 16.8 % (21.0-51.0); MEAN CORPUSCULAR HEMOGLOBIN 30.9 pg (27.0-33.0); MEAN CORPUSCULAR HGB CONC 33.2 g/dL (32.0-36.0); MEAN CORPUSCULAR VOLUME 93.1 fL (79-99); MONOCYTES % (AUTO) 6.7 % (3.0-13.0); NEUTROPHILS % (AUTO) 71.5 % (40.0-77.0); PLATELET COUNT (AUTO) 178 K/uL (130-400); RED CELL DISTRIBUTION WIDTH 13.7 % (11.0-15.5); WHITE BLOOD COUNT (AUTO) 11.4 K/uL (4.8-10.8)
[2021-08-22 04:04] LABS: INR 1.05 (0.85-1.15); PROTHROMBIN TIME 11.4 SEC (9.6-11.6)
[2021-08-22 04:16] LABS: ALBUMIN 2.3 g/dL (3.5-5.0); BILIRUBIN,TOTAL 0.4 mg/dL (0.2-1.0); CREATININE 0.5 mg/dL (0.5-1.5); MAGNESIUM 2.1 mg/dL (1.80-2.40); PHOSPHORUS 2.3 mg/dL (2.5-4.9); POTASSIUM 3.3 mmol/L (3.5-5.1)
[2021-08-22] MEDS: HYDROMORPHONE 0.5 MG SYG (0.5MG/0.5ML) IVP PRN ×2 (04:44→22:36)
[2021-08-22 04:54] VITALS: BP 133/54
[2021-08-22] MEDS: VANCOMYCIN 750MG VIAL IVPB SCH (06:25)
[2021-08-22] MEDS: LEVOTHYROXINE 100 MCG TABLET PO SCH (06:25)
[2021-08-22] MEDS: 0.9% NACL 250ML 250 ML IV SCH (06:25)
[2021-08-22 07:05] VITALS: BP 149/62
[2021-08-22] MEDS ORDERED: NON-FORMULARY MEDICATION 1 EACH (Levothyroxine Sodium (Levothyroxine) 100 MCG) PO SCH (07:30)
[2021-08-22] MEDS ORDERED: NON-FORMULARY MEDICATION 1 EACH (Pantoprazole Sodium 20 MG) PO SCH (09:00)
[2021-08-22] MEDS: GABAPENTIN 100 MG CAPSULE PO SCH ×3 (09:40→20:41)
[2021-08-22] MEDS: HYDROXYCHLOROQUINE SULFATE 200 MG TAB PO SCH ×2 (09:40→20:42)
[2021-08-22] MEDS: ENOXAPARIN SODIUM 30 MG/0.3 ML SQ SCH (09:41)
[2021-08-22 11:05] VITALS: BP 124/55
[2021-08-22] MEDS: PANTOPRAZOLE 40 MG/VIAL IVP SCH (11:53)
[2021-08-22] MEDS: FLUCONAZOLE 200 MG/NS 100 ML 100 ML IV SCH (11:53)
[2021-08-22] MEDS: NS-20 MEQ KCL 1000ML 1,000 ML IV SCH ×2 (11:53→18:31)
[2021-08-22] MEDS: MAGNESIUM HYDROXIDE 30 ML/UDCUP PO SCH (13:00)
[2021-08-22 15:05] VITALS: BP 129/52
[2021-08-22 20:13] VITALS: BP 121/53
[2021-08-22] MEDS: ATORVASTATIN 10 MG TABLET PO SCH (20:41)
[2021-08-22 23:59] VITALS: BP 119/52
[2021-08-23] MEDS ORDERED: 0.9%NACL 1000ML 1,000 ML IV ONE (00:40)
[2021-08-23] MEDS: POTASSIUM CHLORIDE 20MEQ/100ML 100 ML IV PRN (00:47)
[2021-08-23] MEDS: MEROPENEM 1 GM VIAL IVP SCH ×2 (01:44→08:52)
[2021-08-23] MEDS: NS-20 MEQ KCL 1000ML 1,000 ML IV SCH ×2 (03:30→13:30)
[2021-08-23] MEDS ORDERED: LIDOCAINE HCL-MPF 1% 2ML VIAL IV PRN (04:30)
[2021-08-23] MEDS ORDERED: MAGNESIUM 2GM PREMIX 50ML 50 ML IV PRN (04:30)
[2021-08-23] MEDS ORDERED: POTASSIUM CHLORIDE 20MEQ/100ML 100 ML IV PRN (04:30)
[2021-08-23] MEDS ORDERED: POTASSIUM CHLORIDE 10% ELIXIR 20 MEQ/15 ML UDCUP PO PRN (04:30)
[2021-08-23 06:02] LABS: BASOPHILS % (AUTO) 0.6 % (0.0-5.0); HEMATOCRIT 31.4 % (36-48); LYMPHOCYTES % (AUTO) 18.4 % (21.0-51.0); MEAN CORPUSCULAR HEMOGLOBIN 30.4 pg (27.0-33.0); MEAN CORPUSCULAR HGB CONC 31.5 g/dL (32.0-36.0); MEAN CORPUSCULAR VOLUME 96.3 fL (79-99); MONOCYTES % (AUTO) 7.5 % (3.0-13.0); NEUTROPHILS % (AUTO) 69.1 % (40.0-77.0); PLATELET COUNT (AUTO) 151 K/uL (130-400); RED BLOOD CELL COUNT(AUTO) 3.26 MIL/uL (4.00-5.50)
[2021-08-23 06:09] LABS: ALBUMIN 2.3 g/dL (3.5-5.0); CREATININE 0.5 mg/dL (0.5-1.5); PHOSPHORUS 2.7 mg/dL (2.5-4.9); POTASSIUM 3.5 mmol/L (3.5-5.1)
[2021-08-23 06:10] LABS: BILIRUBIN,TOTAL 0.3 mg/dL (0.2-1.0)
[2021-08-23 06:22] VITALS: BP 128/58
[2021-08-23 06:27] LABS: MAGNESIUM 1.8 mg/dL (1.80-2.40)
[2021-08-23] MEDS: LEVOTHYROXINE 100 MCG TABLET PO SCH (06:39)
[2021-08-23 07:10] VITALS: BP 132/87
[2021-08-23] MEDS: GABAPENTIN 100 MG CAPSULE PO SCH ×2 (08:54→14:57)
[2021-08-23] MEDS: PANTOPRAZOLE 40 MG/VIAL IVP SCH (08:54)
[2021-08-23] MEDS: HYDROXYCHLOROQUINE SULFATE 200 MG TAB PO SCH (08:54)
[2021-08-23] MEDS: ENOXAPARIN SODIUM 30 MG/0.3 ML SQ SCH (08:54)
[2021-08-23] MEDS: BACLOFEN 10 MG TABLET PO PRN (09:22)
[2021-08-23 11:10] VITALS: BP 113/46
[2021-08-23] MEDS: KCL 20 MEQ ERTAB PO PRN ×2 (13:04→14:57)
[2021-08-23 15:10] VITALS: BP 127/46
[2021-08-23] MEDS: MAGNESIUM 2GM PREMIX 50ML 50 ML IV PRN (15:17)
== END 2021-08-23 18:06 | disposition home or self-care (01) | DRG 862 ==
LOC: EDH 00:48 → EDHIP 06:18 → OBSVTOIN 06:18 → 3AH 18:30
PROVIDERS: ADMIT Internal Medicine Critical Care Medicine; ATTEND Internal Medicine Critical Care Medicine
DX: T81.49XA Infection following a procedure, other surgical site, initial encounter (principal); A41.50 Gram-negative sepsis, unspecified; T81.30XA Disruption of wound, unspecified, initial encounter; K57.92 Diverticulitis of intestine, part unspecified, without perforation or abscess without bleeding; K56.600 Partial intestinal obstruction, unspecified as to cause; E03.9 Hypothyroidism, unspecified; K59.00 Constipation, unspecified; E87.6 Hypokalemia; Z20.822 Contact with and (suspected) exposure to COVID-19; D72.810 Lymphocytopenia; E66.9 Obesity, unspecified; E78.00 Pure hypercholesterolemia, unspecified; F17.200 Nicotine dependence, unspecified, uncomplicated; Y83.8 Other surgical procedures as the cause of abnormal reaction of the patient, or of later complication, without mention of misadventure at the time of the procedure; D64.9 Anemia, unspecified; Z83.3 Family history of diabetes mellitus; Z82.3 Family history of stroke; Z82.49 Family history of ischemic heart disease and other diseases of the circulatory system; Z93.3 Colostomy status; Y92.89 Other specified places as the place of occurrence of the external cause; Z68.25 Body mass index [BMI] 25.0-25.9, adult
CPT/HCPCS: 36415; 71045; 73501; 74177; 80053; 80202; 81003; 82948; 83605; 83690; 83735; 84100; 84132; 84145; 84484; 85025; 85610; 85730; 87040; 87070; 87076; 87077; 87088; 87186; 87635; 87804; 93005; 93926; 93971; C9113; G0378; J1170; J1450; J1650; J2185; J2405; J2543; J3010; J3370; J3475; J3480; J3490; J7030; J7050; Q9967

== ENCOUNTER 2021-08-24 15:23 | Inpatient (IN) | payer OTHER, MEDICARE ==
[~2021-08-24] VITALS: Ht 149.9 cm; Wt 55.7 kg
[~2021-08-24 15:23] MED LIST changes: -ACET-2743 PO; -AMOX-426 PO; +ATOR10 PO; +BACL10TA PO; -BUPR-113 PO; +DICL100G31 TP; +GABA-529 PO; -GABA-531 PO; +HYDROCHLOROQUINE PO; +LEVO100C4 PO; -LEVO88TA4 PO; +LINA290C PO; +PANT20TA18 PO; -PANT40TA54 PO; -SENN15TA PO; +TRAM-355 PO
[2021-08-24] MEDS ORDERED: KETOROLAC 30MG VIAL (30MG/ML) IVP ONE (15:30)
[2021-08-24] MEDS ORDERED: ONDANSETRON 4MG INJ IVP ONE (15:30)
[2021-08-24 16:05] LABS: BASOPHILS % (AUTO) 0.5 % (0.0-5.0); EOSINOPHILS % (AUTO) 1.9 % (0.0-8.0); HEMATOCRIT 38.8 % (36-48); LYMPHOCYTES % (AUTO) 19.8 % (21.0-51.0); MEAN CORPUSCULAR HEMOGLOBIN 30.3 pg (27.0-33.0); MEAN CORPUSCULAR HGB CONC 32.2 g/dL (32.0-36.0); MEAN CORPUSCULAR VOLUME 94.2 fL (79-99); NEUTROPHILS % (AUTO) 71.5 % (40.0-77.0); PLATELET COUNT (AUTO) 199 K/uL (130-400); RED BLOOD CELL COUNT(AUTO) 4.12 MIL/uL (4.00-5.50); RED CELL DISTRIBUTION WIDTH 14.1 % (11.0-15.5); WHITE BLOOD COUNT (AUTO) 12.9 K/uL (4.8-10.8)
[2021-08-24 16:19] LABS: CREATININE 0.7 mg/dL (0.5-1.5); POTASSIUM 3.4 mmol/L (3.5-5.1)
[2021-08-24 16:24] LABS: ALBUMIN 3.2 g/dL (3.5-5.0); BILIRUBIN,TOTAL 0.4 mg/dL (0.2-1.0); TOTAL PROTEIN, SERUM 7.7 g/dL (6.0-8.3)
[2021-08-24] MEDS ORDERED: FENTANYL CITRATE PF 50 MCG/1 ML 2ML VIAL IVP ONE ×3 (16:30→17:30)
[2021-08-24] MEDS ORDERED: PROMETHAZINE HCL 25 MG/ML 1ML AMPULE IM ONE (16:30)
[2021-08-24] MEDS ORDERED: LACTATED RINGERS 1000ML 1,000 ML IV ONE ×2 (16:44→17:00)
[2021-08-24] MEDS ORDERED: 0.9%NACL 50ML 50 ML IV ONE (16:54)
[2021-08-24] MEDS: ZOSYN 3.375GM +NS 50ML IV SCH (16:59)
[2021-08-24] MEDS ORDERED: MAGNESIUM 2GM PREMIX 50ML 50 ML IV PRN (17:00)
[2021-08-24] MEDS ORDERED: LACTULOSE 20 GM/30 ML UDCUP PO PRN (17:00)
[2021-08-24] MEDS ORDERED: LABETALOL 20MG SYG IV PRN (17:00)
[2021-08-24] MEDS ORDERED: HYDRALAZINE 20MG/ML VIAL IV PRN (17:00)
[2021-08-24] MEDS: CEFTRIAXONE 1G VIAL IVP SCH (17:34)
[2021-08-24] MEDS: METOCLOPRAMIDE 10 MG/2 ML VIAL IVP SCH (17:34)
[2021-08-24] MEDS: KETOROLAC 15MG/ML VIAL (15MG/ML) IM PRN (18:15)
[2021-08-24] MEDS: INSULIN HUMULIN R 100 UNIT/ML 3ML SQ SCH (20:49)
[2021-08-24] MEDS: POTASSIUM CHLORIDE 10MEQ/100ML 100 ML IV PRN (22:05)
[2021-08-24] MEDS: ONDANSETRON 4MG INJ IVP PRN (22:26)
[2021-08-25] MEDS: KETOROLAC 15MG/ML VIAL (15MG/ML) IM PRN (00:19)
[2021-08-25 00:25] VITALS: BP 157/69
[2021-08-25] MEDS: ZOSYN 3.375GM +NS 50ML IV SCH ×3 (00:27→18:17)
[2021-08-25] MEDS: ONDANSETRON 4MG INJ IVP PRN ×3 (02:15→17:48)
[2021-08-25] MEDS ORDERED: GLUCAGON 1MG KIT 1 MG ML IM PRN (02:30)
[2021-08-25] MEDS ORDERED: DEXTROSE 50%-WATER 50 ML DISP.SYRIN IV PRN (02:30)
[2021-08-25] MEDS ORDERED: MORPHINE 2 MG SYG IM ONE (02:30)
[2021-08-25 04:00] VITALS: BP 141/77
[2021-08-25 05:38] LABS: BASOPHILS % (AUTO) 0.4 % (0.0-5.0); EOSINOPHILS % (AUTO) 0.1 % (0.0-8.0); HEMATOCRIT 38.6 % (36-48); LYMPHOCYTES % (AUTO) 7.4 % (21.0-51.0); MEAN CORPUSCULAR HEMOGLOBIN 30.3 pg (27.0-33.0); MEAN CORPUSCULAR HGB CONC 32.6 g/dL (32.0-36.0); MEAN CORPUSCULAR VOLUME 92.8 fL (79-99); MONOCYTES % (AUTO) 4.7 % (3.0-13.0); NEUTROPHILS % (AUTO) 86.7 % (40.0-77.0); PLATELET COUNT (AUTO) 257 K/uL (130-400); RED BLOOD CELL COUNT(AUTO) 4.16 MIL/uL (4.00-5.50); RED CELL DISTRIBUTION WIDTH 14.3 % (11.0-15.5); WHITE BLOOD COUNT (AUTO) 17.9 K/uL (4.8-10.8)
[2021-08-25 05:50] LABS: POTASSIUM 4.2 mmol/L (3.5-5.1)
[2021-08-25] MEDS: INSULIN HUMULIN R 100 UNIT/ML 3ML SQ SCH ×7 (06:00→21:00)
[2021-08-25 06:20] LABS: PHOSPHORUS 5.9 mg/dL (2.5-4.9)
[2021-08-25] MEDS: KETOROLAC 15MG/ML VIAL (15MG/ML) IV PRN ×3 (07:30→23:12)
[2021-08-25] MEDS: METOCLOPRAMIDE 10 MG/2 ML VIAL IVP SCH ×3 (07:45→18:17)
[2021-08-25 08:00] VITALS: BP 126/69
[2021-08-25] MEDS: CEFTRIAXONE 1G VIAL IVP SCH (08:04)
[2021-08-25 12:00] VITALS: BP 141/77
[2021-08-25 16:00] VITALS: BP 112/68
[2021-08-25] MEDS: DEXTROSE 5 %-0.45 % NACL 1,000 ML IV SCH (18:17)
[2021-08-25 20:00] VITALS: BP 128/75
[2021-08-26] VITALS (7 sets, daily range): BP systolic 109–135; BP diastolic 59–76
[2021-08-26] MEDS: ZOSYN 3.375GM +NS 50ML IV SCH ×2 (01:38→09:25)
[2021-08-26 05:14] LABS: BASOPHILS % (AUTO) 0.6 % (0.0-5.0); EOSINOPHILS % (AUTO) 0.4 % (0.0-8.0); HEMATOCRIT 38.7 % (36-48); LYMPHOCYTES % (AUTO) 6.4 % (21.0-51.0); MEAN CORPUSCULAR HGB CONC 33.1 g/dL (32.0-36.0); MEAN CORPUSCULAR VOLUME 93.7 fL (79-99); MONOCYTES % (AUTO) 7.3 % (3.0-13.0); NEUTROPHILS % (AUTO) 84.5 % (40.0-77.0); PLATELET COUNT (AUTO) 307 K/uL (130-400); RED BLOOD CELL COUNT(AUTO) 4.13 MIL/uL (4.00-5.50); RED CELL DISTRIBUTION WIDTH 14.6 % (11.0-15.5); WHITE BLOOD COUNT (AUTO) 26.6 K/uL (4.8-10.8)
[2021-08-26 05:26] LABS: ALBUMIN 2.6 g/dL (3.5-5.0); BILIRUBIN,TOTAL 0.5 mg/dL (0.2-1.0); CREATININE 2.9 mg/dL (0.5-1.5); POTASSIUM 4.6 mmol/L (3.5-5.1); TOTAL PROTEIN, SERUM 7.1 g/dL (6.0-8.3)
[2021-08-26] MEDS: INSULIN HUMULIN R 100 UNIT/ML 3ML SQ SCH ×5 (06:00→23:28)
[2021-08-26] MEDS: KETOROLAC 15MG/ML VIAL (15MG/ML) IV PRN (06:05)
[2021-08-26] MEDS: METOCLOPRAMIDE 10 MG/2 ML VIAL IVP SCH ×2 (06:05→12:58)
[2021-08-26] MEDS ORDERED: DIATR MEGLU/DIATRIZOATE SODIUM 30 ML BOTTLE ONE (09:56)
[2021-08-26] MEDS: DEXTROSE 5 %-0.45 % NACL 1,000 ML IV SCH (12:57)
[2021-08-26] MEDS: MEROPENEM 1 GM VIAL IVP SCH ×2 (12:58→23:29)
[2021-08-26] MEDS ORDERED: IOHEXOL-350 75 ML VIAL IV ONE (14:40)
[2021-08-26] MEDS ORDERED: NACL IV ONE (16:30)
[2021-08-26] MEDS ORDERED: DEXTROSE IV ONE (16:30)
[2021-08-26] MEDS ORDERED: POTASSIUM CHLORIDE IV ONE (16:30)
[2021-08-26] MEDS ORDERED: DEXTROSE 5 %-0.45 % NACL 500 ML IV SCH (17:00)
[2021-08-26 17:04] LABS: APPEARANCE,URINE CLOUDY (CLEAR); BILIRUBIN,URINE SMALL (NEGATIVE); COLOR,URINE YELLOW (YELLOW); GLUCOSE, URINE (UA) NEGATIVE (NEGATIVE); KETONES,URINE 5 mg/dL (NEGATIVE); LEUKOCYTE ESTERASE ,URINE NEGATIVE (NEGATIVE); NITRATE,URINE NEGATIVE (NEGATIVE); OCCULT BLOOD,URINE TRACE-INTACT (NEGATIVE); PH,URINE 5.5 (5.0-8.0); PROTEIN,URINE 100 mg/dL (NEGATIVE); UROBILINOGEN,URINE 0.2 mg/dL (0.2-1.0)
[2021-08-26 17:10] LABS: BACTERIA,URINE Moderate /HPF (None Seen); SQUAMOUS EPITHELIAL CELL,UR Moderate /HPF (0-2)
[2021-08-26 20:39] LABS: INR 1.1 (0.85-1.15); PROTHROMBIN TIME 11.9 SEC (9.6-11.6)
[2021-08-26 20:40] LABS: PARTIAL THROMBOPLASTIN TIME 30.5 SEC (26.3-35.5)
[2021-08-26] MEDS: HYDROMORPHONE 0.5 MG SYG (0.5MG/0.5ML) IVP PRN (22:13)
[2021-08-26] MEDS ORDERED: 0.9% NACL 500ML IV.SOLN 500 ML IV ONE ×2 (23:27→23:30)
[2021-08-27] VITALS (26 sets, daily range): BP systolic 102–141; BP diastolic 44–62
[2021-08-27] MEDS: DEXTROSE 5 %-0.45 % NACL 1,000 ML IV SCH ×3 (04:15→23:55)
[2021-08-27] MEDS: HYDROMORPHONE 0.5 MG SYG (0.5MG/0.5ML) IVP PRN ×2 (04:31→10:57)
[2021-08-27 05:13] LABS: BASOPHILS % (AUTO) 0.4 % (0.0-5.0); EOSINOPHILS % (AUTO) 2.5 % (0.0-8.0); HEMATOCRIT 30.7 % (36-48); LYMPHOCYTES % (AUTO) 6.9 % (21.0-51.0); MEAN CORPUSCULAR HEMOGLOBIN 30.1 pg (27.0-33.0); MEAN CORPUSCULAR HGB CONC 32.2 g/dL (32.0-36.0); MEAN CORPUSCULAR VOLUME 93.3 fL (79-99); MONOCYTES % (AUTO) 6.4 % (3.0-13.0); NEUTROPHILS % (AUTO) 82.7 % (40.0-77.0); PLATELET COUNT (AUTO) 261 K/uL (130-400); RED BLOOD CELL COUNT(AUTO) 3.29 MIL/uL (4.00-5.50); RED CELL DISTRIBUTION WIDTH 14.3 % (11.0-15.5); WHITE BLOOD COUNT (AUTO) 23.4 K/uL (4.8-10.8)
[2021-08-27 05:26] LABS: ALBUMIN 2.1 g/dL (3.5-5.0); BILIRUBIN,TOTAL 0.5 mg/dL (0.2-1.0); CREATININE 3.3 mg/dL (0.5-1.5); POTASSIUM 3.8 mmol/L (3.5-5.1); TOTAL PROTEIN, SERUM 6.2 g/dL (6.0-8.3)
[2021-08-27 05:57] LABS: BAND NEUTROPHILS % (MANUAL) 2 % (0-2); EOSINOPHILS % (MANUAL) 3 % (1-6); LYMPHOCYTES % (MANUAL) 7 % (22-44); MAN.DIFF COMMENT-IMPRESSION MANUAL DIFFERENTIAL; MONOCYTES % (MANUAL) 7 % (2-9); PLATELET MORPHOLOGY COMMENT ADEQUATE; REACTIVE LYMPHOCYTES 1 % (0-0); SEGMENTED NEUTROPHILS % 80 % (40-70)
[2021-08-27] MEDS: INSULIN HUMULIN R 100 UNIT/ML 3ML SQ SCH ×2 (06:00→11:41)
[2021-08-27] MEDS ORDERED: ENOXAPARIN SODIUM 40 MG/0.4 ML SYRINGE SQ SCH (09:00)
[2021-08-27] MEDS: FLUCONAZOLE 200 MG/NS 100 ML 100 ML IV SCH (09:47)
[2021-08-27] MEDS: HEPARIN 5,000 UNIT VIAL SQ SCH ×2 (09:48→21:23)
[2021-08-27] MEDS: METOCLOPRAMIDE 10 MG/2 ML VIAL IVP SCH ×3 (09:51→17:43)
[2021-08-27] MEDS: MEROPENEM 1 GM VIAL IVP SCH (11:43)
[2021-08-27] MEDS ORDERED: FENTANYL CITRATE PF 50 MCG/1 ML 2ML VIAL ONE (13:38)
[2021-08-27] MEDS ORDERED: PROPOFOL 10 MG/ML 20ML VIAL IV ONE (13:38)
[2021-08-27] MEDS ORDERED: ROCURONIUM 10MG/1ML SYR 10 MG/ML ML ONE (13:38)
[2021-08-27] MEDS ORDERED: LIDOCAINE PF 100MG/5ML (2%) SYRINGE 5ML ONE (13:38)
[2021-08-27] MEDS ORDERED: SUCCINYLCHOLINE CHLORIDE 20 MG/ML 10 ML VIAL ONE (13:38)
[2021-08-27] MEDS ORDERED: MIDAZOLAM HCL 1 MG/ML 2ML VIAL ONE (13:38)
[2021-08-27] MEDS ORDERED: GLYCOPYRROLATE 1 MG/5 ML SYRINGE ONE (15:36)
[2021-08-27] MEDS ORDERED: NEOSTIGMINE 5MG/5ML SYR IV ONE (15:37)
[2021-08-27] MEDS: 0.9%NACL 1000ML 1,000 ML IV SCH ×3 (15:58→17:38)
[2021-08-27] MEDS ORDERED: ALBUTEROL 0.083% 2.5 MG/3 ML INH IH PRN (16:00)
[2021-08-27] MEDS ORDERED: MEPERIDINE-PF 25 MG/ML SYG ONE (16:13)
[2021-08-27] MEDS: MORPHINE 2 MG SYG IVP PRN (17:53)
[2021-08-27] MEDS: FAMOTIDINE 20MG VIAL IV SCH (21:21)
[2021-08-28] VITALS (7 sets, daily range): BP systolic 102–150; BP diastolic 42–55
[2021-08-28] MEDS: MEROPENEM 1 GM VIAL IVP SCH ×2 (00:19→12:32)
[2021-08-28] MEDS: 0.9%NACL 1000ML 1,000 ML IV SCH ×2 (01:58→11:57)
[2021-08-28] MEDS: INSULIN HUMULIN R 100 UNIT/ML 3ML SQ SCH ×3 (05:03→11:57)
[2021-08-28 05:05] LABS: BASOPHILS % (AUTO) 0.5 % (0.0-5.0); EOSINOPHILS % (AUTO) 2.9 % (0.0-8.0); HEMATOCRIT 23.2 % (36-48); LYMPHOCYTES % (AUTO) 10.5 % (21.0-51.0); MEAN CORPUSCULAR HGB CONC 31.5 g/dL (32.0-36.0); MEAN CORPUSCULAR VOLUME 95.5 fL (79-99); MONOCYTES % (AUTO) 5.3 % (3.0-13.0); PLATELET COUNT (AUTO) 225 K/uL (130-400); RED BLOOD CELL COUNT(AUTO) 2.43 MIL/uL (4.00-5.50); RED CELL DISTRIBUTION WIDTH 14.3 % (11.0-15.5); WHITE BLOOD COUNT (AUTO) 12.6 K/uL (4.8-10.8)
[2021-08-28] MEDS: METOCLOPRAMIDE 10 MG/2 ML VIAL IVP SCH ×2 (06:42→12:33)
[2021-08-28] MEDS: FLUCONAZOLE 200 MG/NS 100 ML 100 ML IV SCH (08:44)
[2021-08-28] MEDS: FAMOTIDINE 20MG VIAL IV SCH ×2 (08:45→21:25)
[2021-08-28] MEDS: HEPARIN 5,000 UNIT VIAL SQ SCH ×2 (08:46→21:21)
[2021-08-28] MEDS: MORPHINE 2 MG SYG IVP PRN ×2 (09:21→18:19)
[2021-08-28] MEDS: DEXTROSE 5 %-0.45 % NACL 1,000 ML IV SCH (11:02)
[2021-08-29] MEDS: MORPHINE 2 MG SYG IVP PRN ×2 (00:22→21:29)
[2021-08-29] MEDS: MEROPENEM 1 GM VIAL IVP SCH ×2 (00:22→12:54)
[2021-08-29 03:25] VITALS: BP 129/54
[2021-08-29] MEDS: INSULIN HUMULIN R 100 UNIT/ML 3ML SQ SCH ×4 (05:20→17:12)
[2021-08-29] MEDS: METOCLOPRAMIDE 10 MG/2 ML VIAL IVP SCH ×3 (05:52→17:06)
[2021-08-29 06:21] LABS: BASOPHILS % (AUTO) 0.8 % (0.0-5.0); EOSINOPHILS % (AUTO) 6.1 % (0.0-8.0); HEMATOCRIT 25.5 % (36-48); MEAN CORPUSCULAR HEMOGLOBIN 29.5 pg (27.0-33.0); MEAN CORPUSCULAR HGB CONC 32.2 g/dL (32.0-36.0); MEAN CORPUSCULAR VOLUME 91.7 fL (79-99); MONOCYTES % (AUTO) 6.3 % (3.0-13.0); NEUTROPHILS % (AUTO) 71.3 % (40.0-77.0); PLATELET COUNT (AUTO) 218 K/uL (130-400); RED BLOOD CELL COUNT(AUTO) 2.78 MIL/uL (4.00-5.50); RED CELL DISTRIBUTION WIDTH 15.5 % (11.0-15.5); WHITE BLOOD COUNT (AUTO) 9.2 K/uL (4.8-10.8)
[2021-08-29 08:00] VITALS: BP 125/52
[2021-08-29 08:08] LABS: CREATININE 0.8 mg/dL (0.5-1.5); POTASSIUM 3.2 mmol/L (3.5-5.1)
[2021-08-29] MEDS: FLUCONAZOLE 200 MG/NS 100 ML 100 ML IV SCH (08:23)
[2021-08-29] MEDS: FAMOTIDINE 20MG VIAL IV SCH ×2 (08:23→21:28)
[2021-08-29] MEDS: HEPARIN 5,000 UNIT VIAL SQ SCH ×2 (08:52→21:31)
[2021-08-29 12:00] VITALS: BP 129/60
[2021-08-29 16:00] VITALS: BP 151/68
[2021-08-29] MEDS: POTASSIUM CHLORIDE 10MEQ/100ML 100 ML IV PRN (18:59)
[2021-08-29 20:00] VITALS: BP 132/56
[2021-08-30] VITALS: BP 132/57
[2021-08-30] MEDS: MEROPENEM 1 GM VIAL IVP SCH ×2 (00:31→11:39)
[2021-08-30] MEDS: POTASSIUM CHLORIDE 10MEQ/100ML 100 ML IV PRN (01:50)
[2021-08-30 04:00] VITALS: BP 137/62
[2021-08-30] MEDS: INSULIN HUMULIN R 100 UNIT/ML 3ML SQ SCH ×4 (05:47→16:43)
[2021-08-30 05:50] LABS: BASOPHILS % (AUTO) 0.7 % (0.0-5.0); EOSINOPHILS % (AUTO) 3.8 % (0.0-8.0); HEMATOCRIT 26.3 % (36-48); LYMPHOCYTES % (AUTO) 16.7 % (21.0-51.0); MEAN CORPUSCULAR HEMOGLOBIN 29.6 pg (27.0-33.0); MEAN CORPUSCULAR HGB CONC 32.7 g/dL (32.0-36.0); MEAN CORPUSCULAR VOLUME 90.4 fL (79-99); MONOCYTES % (AUTO) 6.2 % (3.0-13.0); NEUTROPHILS % (AUTO) 71.7 % (40.0-77.0); PLATELET COUNT (AUTO) 178 K/uL (130-400); RED BLOOD CELL COUNT(AUTO) 2.91 MIL/uL (4.00-5.50); RED CELL DISTRIBUTION WIDTH 14.6 % (11.0-15.5); WHITE BLOOD COUNT (AUTO) 9.4 K/uL (4.8-10.8)
[2021-08-30 06:07] LABS: CREATININE 0.6 mg/dL (0.5-1.5); POTASSIUM 3.1 mmol/L (3.5-5.1)
[2021-08-30] MEDS: METOCLOPRAMIDE 10 MG/2 ML VIAL IVP SCH ×3 (06:11→16:54)
[2021-08-30 08:00] VITALS: BP 124/55
[2021-08-30] MEDS: FLUCONAZOLE 200 MG/NS 100 ML 100 ML IV SCH (08:46)
[2021-08-30] MEDS: MULTIVITAMIN WITH MINERALS TABLET PO SCH (08:47)
[2021-08-30] MEDS: FAMOTIDINE 20MG VIAL IV SCH ×2 (08:47→20:59)
[2021-08-30] MEDS: HEPARIN 5,000 UNIT VIAL SQ SCH ×2 (09:14→21:00)
[2021-08-30 12:00] VITALS: BP 121/52
[2021-08-30 16:00] VITALS: BP 160/64
[2021-08-30] MEDS ORDERED: LIDOCAINE HCL-MPF 1% 2ML VIAL IV PRN (17:00)
[2021-08-30] MEDS ORDERED: KCL 20 MEQ ERTAB PO PRN (17:00)
[2021-08-30] MEDS ORDERED: POTASSIUM CHLORIDE 20MEQ/100ML 100 ML IV PRN (17:00)
[2021-08-30] MEDS: POTASSIUM CHLORIDE 10% ELIXIR 20 MEQ/15 ML UDCUP PO PRN ×2 (17:17→19:07)
[2021-08-30 20:00] VITALS: BP 125/61
[2021-08-30] MEDS: MORPHINE 2 MG SYG IVP PRN (21:00)
[2021-08-31] VITALS: BP 135/61
[2021-08-31] MEDS: MEROPENEM 1 GM VIAL IVP SCH ×2 (00:27→13:26)
[2021-08-31 03:55] VITALS: BP 131/55
[2021-08-31] MEDS: INSULIN HUMULIN R 100 UNIT/ML 3ML SQ SCH ×3 (05:47→12:00)
[2021-08-31 05:54] LABS: HEMATOCRIT 34.8 % (36-48); MEAN CORPUSCULAR HEMOGLOBIN 30.4 pg (27.0-33.0); MEAN CORPUSCULAR HGB CONC 33.3 g/dL (32.0-36.0); MEAN CORPUSCULAR VOLUME 91.3 fL (79-99); RED BLOOD CELL COUNT(AUTO) 3.81 MIL/uL (4.00-5.50); RED CELL DISTRIBUTION WIDTH 14.4 % (11.0-15.5); WHITE BLOOD COUNT (AUTO) 10.1 K/uL (4.8-10.8)
[2021-08-31 06:08] LABS: CREATININE 0.6 mg/dL (0.5-1.5); MAGNESIUM 1.5 mg/dL (1.80-2.40); PHOSPHORUS 2.5 mg/dL (2.5-4.9); POTASSIUM 3.6 mmol/L (3.5-5.1)
[2021-08-31 07:15] VITALS: BP 144/54
[2021-08-31] MEDS: METOCLOPRAMIDE 10 MG/2 ML VIAL IVP SCH ×2 (08:52→11:30)
[2021-08-31] MEDS: MULTIVITAMIN WITH MINERALS TABLET PO SCH (08:52)
[2021-08-31] MEDS: FAMOTIDINE 20MG VIAL IV SCH (08:52)
[2021-08-31] MEDS: FLUCONAZOLE 200 MG/NS 100 ML 100 ML IV SCH (08:52)
[2021-08-31] MEDS: HEPARIN 5,000 UNIT VIAL SQ SCH (08:54)
[2021-08-31 11:35] VITALS: BP 119/58
[2021-08-31 15:30] VITALS: BP 133/79
== END 2021-08-31 18:00 | disposition home or self-care (01) | DRG 908 ==
LOC: EDH 15:23 → OBSVTOIN 16:48 → EDHIP 16:48 → 3DH 08-25 00:01
PROVIDERS: ADMIT Internal Medicine; ATTEND Internal Medicine
PROC: 0DN80ZZ Release Small Intestine, Open Approach (ICD-10-PCS; principal; 2021-08-27 13:43)
PROC: 0DB80ZZ Excision of Small Intestine, Open Approach (ICD-10-PCS; 2021-08-27 13:43)
PROC: 0DQ80ZZ Repair Small Intestine, Open Approach (ICD-10-PCS; 2021-08-27 13:43)
DX: T81.30XA Disruption of wound, unspecified, initial encounter (principal); K56.50 Intestinal adhesions [bands], unspecified as to partial versus complete obstruction; K55.9 Vascular disorder of intestine, unspecified; N17.9 Acute kidney failure, unspecified; E78.5 Hyperlipidemia, unspecified; E03.9 Hypothyroidism, unspecified; K21.9 Gastro-esophageal reflux disease without esophagitis; K57.90 Diverticulosis of intestine, part unspecified, without perforation or abscess without bleeding; E87.6 Hypokalemia; R73.9 Hyperglycemia, unspecified; R53.81 Other malaise; D64.9 Anemia, unspecified; F17.200 Nicotine dependence, unspecified, uncomplicated; Y83.8 Other surgical procedures as the cause of abnormal reaction of the patient, or of later complication, without mention of misadventure at the time of the procedure; I10 Essential (primary) hypertension; M06.9 Rheumatoid arthritis, unspecified; Z93.3 Colostomy status; Z82.49 Family history of ischemic heart disease and other diseases of the circulatory system; Z83.3 Family history of diabetes mellitus; Z82.3 Family history of stroke; Y92.89 Other specified places as the place of occurrence of the external cause; N99.0 Postprocedural (acute) (chronic) kidney failure
CPT/HCPCS: 36415; 36430; 71045; 74018; 74176; 74178; 76770; 80048; 80053; 81001; 82948; 83605; 83690; 83735; 83880; 84100; 84145; 84484; 85025; 85027; 85610; 85730; 86850; 86900; 86901; 86923; 87070; 87076; 87088; 87635; 93005; 93926; 93970; 94664; 97039; A4344; C1894; G0378; J0330; J0696; J1170; J1450; J1644; J1885; J2001; J2175; J2185; J2250; J2405; J2543; J2550; J2704; J2710; J2765; J3010; J3490; J7030; J7040; J7042; J7120; P9016; Q9963; Q9967

== ENCOUNTER → 2021-09-07 | Outpatient (CLI) | payer OTHER, MEDICARE ==
[~2021-09-07] MED LIST changes: +LIDOCAINE HCL 4% LTA SOL 4 ML VIAL TP ONE
== END | disposition home or self-care (01) ==
LOC: WHH 08:17
PROVIDERS: ATTEND Podiatrist Foot & Ankle Surgery
DX: I70.261 Atherosclerosis of native arteries of extremities with gangrene, right leg (principal); E11.621 Type 2 diabetes mellitus with foot ulcer; L97.511 Non-pressure chronic ulcer of other part of right foot limited to breakdown of skin; E11.52 Type 2 diabetes mellitus with diabetic peripheral angiopathy with gangrene; I10 Essential (primary) hypertension; E78.5 Hyperlipidemia, unspecified; K21.00 Gastro-esophageal reflux disease with esophagitis, without bleeding; K57.40 Diverticulitis of both small and large intestine with perforation and abscess without bleeding; E03.9 Hypothyroidism, unspecified; M06.9 Rheumatoid arthritis, unspecified; E66.9 Obesity, unspecified; F33.9 Major depressive disorder, recurrent, unspecified; F17.200 Nicotine dependence, unspecified, uncomplicated; Z68.25 Body mass index [BMI] 25.0-25.9, adult; Z79.899 Other long term (current) drug therapy; Z90.49 Acquired absence of other specified parts of digestive tract; Z93.3 Colostomy status
CPT/HCPCS: A4450; G0463

== ENCOUNTER → 2021-09-12 | Outpatient (CLI) | payer OTHER, MEDICARE | END | disposition home or self-care (01) | LOC: WHH 14:00 | PROVIDERS: ATTEND Podiatrist Foot & Ankle Surgery | DX: I70.261 Atherosclerosis of native arteries of extremities with gangrene, right leg (principal); E11.621 Type 2 diabetes mellitus with foot ulcer; L97.511 Non-pressure chronic ulcer of other part of right foot limited to breakdown of skin; E11.52 Type 2 diabetes mellitus with diabetic peripheral angiopathy with gangrene; I10 Essential (primary) hypertension; E78.5 Hyperlipidemia, unspecified; K21.00 Gastro-esophageal reflux disease with esophagitis, without bleeding; K57.40 Diverticulitis of both small and large intestine with perforation and abscess without bleeding; E03.9 Hypothyroidism, unspecified; M06.9 Rheumatoid arthritis, unspecified; E66.9 Obesity, unspecified; Z68.25 Body mass index [BMI] 25.0-25.9, adult; Z79.899 Other long term (current) drug therapy; Z90.49 Acquired absence of other specified parts of digestive tract; Z93.3 Colostomy status | CPT/HCPCS: 93923; G0463 ==

== ENCOUNTER → 2021-09-14 | Outpatient (CLI) | payer OTHER, MEDICARE ==
[~2021-09-14] MED LIST changes: -LIDOCAINE HCL 4% LTA SOL 4 ML VIAL TP ONE
== END ==
LOC: WHH 08:14
PROVIDERS: ATTEND Podiatrist Foot & Ankle Surgery
DX: I70.261 Atherosclerosis of native arteries of extremities with gangrene, right leg (principal); E11.621 Type 2 diabetes mellitus with foot ulcer; L97.511 Non-pressure chronic ulcer of other part of right foot limited to breakdown of skin; E11.52 Type 2 diabetes mellitus with diabetic peripheral angiopathy with gangrene; I10 Essential (primary) hypertension; E78.5 Hyperlipidemia, unspecified; E03.9 Hypothyroidism, unspecified; K21.00 Gastro-esophageal reflux disease with esophagitis, without bleeding; K57.40 Diverticulitis of both small and large intestine with perforation and abscess without bleeding; M06.9 Rheumatoid arthritis, unspecified; E66.9 Obesity, unspecified; F33.9 Major depressive disorder, recurrent, unspecified; F17.200 Nicotine dependence, unspecified, uncomplicated; Z68.25 Body mass index [BMI] 25.0-25.9, adult; Z79.899 Other long term (current) drug therapy
CPT/HCPCS: G0463

== ENCOUNTER 2021-09-21 09:21 | Inpatient (IN) | payer OTHER, MEDICARE ==
[2021-09-20 12:29] VITALS: BP 154/61
[~2021-09-21] VITALS: Ht 152.4 cm; Wt 53.6 kg
[2021-09-21 10:25] VITALS: BP 143/92
[2021-09-21] MEDS ORDERED: MEPERIDINE-PF 25 MG/ML SYG IVP SCH (11:30)
[2021-09-21] MEDS ORDERED: LIDOCAINE PF 100MG/5ML (2%) SYRINGE 5ML ONE (11:40)
[2021-09-21] MEDS ORDERED: LABETALOL 20MG SYG IV PRN (12:00)
[2021-09-21] MEDS ORDERED: LACTULOSE 20 GM/30 ML UDCUP PO PRN (12:00)
[2021-09-21] MEDS ORDERED: HYDRALAZINE 20MG/ML VIAL IV PRN (12:00)
[2021-09-21] MEDS: ARTIFICAL TEARS SOL 15 ML OU SCH ×2 (12:00→18:00)
[2021-09-21] MEDS ORDERED: HYDROMORPHONE 1 MG INJ IVP PRN (12:00)
[2021-09-21] MEDS ORDERED: ONDANSETRON 4MG INJ IVP PRN (12:00)
[2021-09-21] MEDS ORDERED: ALBUTEROL 0.083% 2.5 MG/3 ML INH IH PRN (12:00)
[2021-09-21] MEDS ORDERED: KETOROLAC 15MG/ML VIAL (15MG/ML) IM PRN (14:00)
[2021-09-21] MEDS ORDERED: TRAMADOL HCL 50 MG TABLET PO PRN (14:30)
[2021-09-21] MEDS ORDERED: BACLOFEN 10 MG TABLET PO PRN ×2 (14:30→17:30)
[2021-09-21] MEDS: GABAPENTIN 100 MG CAPSULE PO SCH ×2 (15:02→20:31)
[2021-09-21 15:17] LABS: HEMATOCRIT 31.3 % (36-48); MEAN CORPUSCULAR HEMOGLOBIN 30.1 pg (27.0-33.0); MEAN CORPUSCULAR HGB CONC 32.3 g/dL (32.0-36.0); MEAN CORPUSCULAR VOLUME 93.4 fL (79-99); PLATELET COUNT (AUTO) 288 K/uL (130-400); RED BLOOD CELL COUNT(AUTO) 3.35 MIL/uL (4.00-5.50); RED CELL DISTRIBUTION WIDTH 16.4 % (11.0-15.5); WHITE BLOOD COUNT (AUTO) 6.6 K/uL (4.8-10.8)
[2021-09-21 15:28] LABS: INR 0.96 (0.85-1.15); PROTHROMBIN TIME 10.5 SEC (9.6-11.6)
[2021-09-21 15:32] LABS: ALBUMIN 2.6 g/dL (3.5-5.0); BILIRUBIN,TOTAL 0.3 mg/dL (0.2-1.0); CREATININE 0.5 mg/dL (0.5-1.5); POTASSIUM 3.3 mmol/L (3.5-5.1); TOTAL PROTEIN, SERUM 6.4 g/dL (6.0-8.3)
[2021-09-21 15:45] VITALS: BP 156/75
[2021-09-21 16:08] LABS: BAND NEUTROPHILS % (MANUAL) 5 % (0-2); EOSINOPHILS % (MANUAL) 3 % (1-6); LYMPHOCYTES % (MANUAL) 22 % (22-44); MAN.DIFF COMMENT-IMPRESSION MANUAL DIFFERENTIAL; MONOCYTES % (MANUAL) 6 % (2-9); REACTIVE LYMPHOCYTES 1 % (0-0); SEGMENTED NEUTROPHILS % 63 % (40-70)
[2021-09-21] MEDS: INSULIN HUMULIN R 100 UNIT/ML 3ML SQ SCH ×2 (16:30→21:00)
[2021-09-21] MEDS: METOCLOPRAMIDE 5 MG TABLET PO SCH (17:00)
[2021-09-21 19:45] VITALS: BP 139/67
[2021-09-21] MEDS: ATORVASTATIN 10 MG TABLET PO SCH (20:31)
[2021-09-21] MEDS: HYDROXYCHLOROQUINE SULFATE 200 MG TAB PO SCH (20:31)
[2021-09-21] MEDS ORDERED: GABAPENTIN 100 MG CAPSULE PO SCH (21:00)
[2021-09-21] MEDS: DICLOFENAC SODIUM TP SCH (21:00)
[2021-09-21] MEDS ORDERED: HYDROMORPHONE 0.5 MG SYG (0.5MG/0.5ML) ONE (21:22)
[2021-09-21] MEDS: LACTATED RINGERS 1000ML 1,000 ML IV SCH (21:30)
[2021-09-21 23:59] VITALS: BP 144/66
[2021-09-22] VITALS (21 sets, daily range): BP systolic 98–146; BP diastolic 40–76
[2021-09-22] MEDS: HYDROMORPHONE 0.5 MG SYG (0.5MG/0.5ML) IVP PRN ×2 (04:58→08:56)
[2021-09-22 05:23] LABS: BASOPHILS % (AUTO) 0.8 % (0.0-5.0); EOSINOPHILS % (AUTO) 5.2 % (0.0-8.0); HEMATOCRIT 31.4 % (36-48); LYMPHOCYTES % (AUTO) 34.9 % (21.0-51.0); MEAN CORPUSCULAR HEMOGLOBIN 30.1 pg (27.0-33.0); MEAN CORPUSCULAR HGB CONC 31.8 g/dL (32.0-36.0); MEAN CORPUSCULAR VOLUME 94.6 fL (79-99); MONOCYTES % (AUTO) 6.4 % (3.0-13.0); NEUTROPHILS % (AUTO) 52.4 % (40.0-77.0); PLATELET COUNT (AUTO) 290 K/uL (130-400); RED BLOOD CELL COUNT(AUTO) 3.32 MIL/uL (4.00-5.50); RED CELL DISTRIBUTION WIDTH 16.4 % (11.0-15.5); WHITE BLOOD COUNT (AUTO) 7.5 K/uL (4.8-10.8)
[2021-09-22 05:38] LABS: CREATININE 0.3 mg/dL (0.5-1.5); MAGNESIUM 1.6 mg/dL (1.80-2.40)
[2021-09-22] MEDS ORDERED: POTASSIUM CHLORIDE 10% ELIXIR 20 MEQ/15 ML UDCUP ONE (05:58)
[2021-09-22] MEDS ORDERED: POTASSIUM CHLORIDE 10% ELIXIR 20 MEQ/15 ML UDCUP PO PRN ×2 (06:00→06:30)
[2021-09-22] MEDS ORDERED: POTASSIUM CHLORIDE 20MEQ/100ML 100 ML IV PRN ×3 (06:00→06:30)
[2021-09-22] MEDS ORDERED: MAGNESIUM 2GM PREMIX 50ML 50 ML IV PRN ×2 (06:00→06:30)
[2021-09-22] MEDS ORDERED: KCL 20 MEQ ERTAB PO PRN (06:30)
[2021-09-22] MEDS ORDERED: LIDOCAINE HCL-MPF 1% 2ML VIAL IV PRN ×2 (06:30)
[2021-09-22] MEDS: INSULIN HUMULIN R 100 UNIT/ML 3ML SQ SCH ×4 (07:30→21:00)
[2021-09-22] MEDS: KCL 20 MEQ ERTAB PO PRN (08:56)
[2021-09-22] MEDS: GABAPENTIN 100 MG CAPSULE PO SCH ×3 (08:57→22:10)
[2021-09-22] MEDS: PANTOPRAZOLE 40 MG TAB DR PO SCH (08:57)
[2021-09-22] MEDS: HYDROXYCHLOROQUINE SULFATE 200 MG TAB PO SCH ×2 (08:57→22:10)
[2021-09-22] MEDS: LINACLOTIDE 290 MCG PO SCH (09:00)
[2021-09-22] MEDS: DICLOFENAC SODIUM TP SCH ×2 (09:00→21:00)
[2021-09-22] MEDS: LEVOTHYROXINE 100 MCG TABLET PO SCH (09:02)
[2021-09-22] MEDS: METOCLOPRAMIDE 5 MG TABLET PO SCH ×3 (09:02→17:00)
[2021-09-22] MEDS: LACTATED RINGERS 1000ML 1,000 ML IV SCH (10:50)
[2021-09-22] MEDS: ARTIFICAL TEARS SOL 15 ML OU SCH ×2 (12:00)
[2021-09-22] MEDS: KETOROLAC 15MG/ML VIAL (15MG/ML) IV PRN (16:22)
[2021-09-22] MEDS ORDERED: PROPOFOL 1000 MG/100 ML 100 ML IV ONE (17:44)
[2021-09-22] MEDS ORDERED: KETAMINE 50MG/ML SYRINGE 50 MG/ML DISP.SYRIN IV ONE (17:44)
[2021-09-22] MEDS ORDERED: LIDOCAINE HCL 1% 20 ML VIAL ONE (17:50)
[2021-09-22] MEDS ORDERED: BUPIVACAINE/PF 0.25% 30ML VIAL IJ ONE (17:50)
[2021-09-22] MEDS ORDERED: ROPIVACAINE 0.5% 5MG/ML 30ML IJ ONE (17:58)
[2021-09-22] MEDS ORDERED: MIDAZOLAM HCL 1 MG/ML 2ML VIAL ONE (18:00)
[2021-09-22] MEDS: CEFAZOLIN SODIUM 1 GM VIAL ONE ×2 (18:00→18:31)
[2021-09-22] MEDS ORDERED: EPHEDRINE SULFATE 50 MG/ML AMPULE ONE (18:31)
[2021-09-22] MEDS: ATORVASTATIN 10 MG TABLET PO SCH (22:10)
[2021-09-23] VITALS (9 sets, daily range): BP systolic 108–147; BP diastolic 57–65
[2021-09-23] MEDS: LACTATED RINGERS 1000ML 1,000 ML IV SCH ×2 (00:46→15:26)
[2021-09-23 05:08] LABS: BASOPHILS % (AUTO) 0.8 % (0.0-5.0); EOSINOPHILS % (AUTO) 2.8 % (0.0-8.0); HEMATOCRIT 29.6 % (36-48); LYMPHOCYTES % (AUTO) 24.7 % (21.0-51.0); MEAN CORPUSCULAR HEMOGLOBIN 29.2 pg (27.0-33.0); MEAN CORPUSCULAR HGB CONC 30.4 g/dL (32.0-36.0); MEAN CORPUSCULAR VOLUME 96.1 fL (79-99); MONOCYTES % (AUTO) 5.6 % (3.0-13.0); NEUTROPHILS % (AUTO) 65.8 % (40.0-77.0); PLATELET COUNT (AUTO) 230 K/uL (130-400); RED BLOOD CELL COUNT(AUTO) 3.08 MIL/uL (4.00-5.50); RED CELL DISTRIBUTION WIDTH 16.5 % (11.0-15.5); WHITE BLOOD COUNT (AUTO) 7.9 K/uL (4.8-10.8)
[2021-09-23] MEDS: ARTIFICAL TEARS SOL 15 ML OU SCH ×4 (05:15→23:48)
[2021-09-23 05:31] LABS: ALBUMIN 2.1 g/dL (3.5-5.0); BILIRUBIN,TOTAL 0.4 mg/dL (0.2-1.0); CREATININE 0.3 mg/dL (0.5-1.5); POTASSIUM 3.5 mmol/L (3.5-5.1); TOTAL PROTEIN, SERUM 5.6 g/dL (6.0-8.3)
[2021-09-23] MEDS: LEVOTHYROXINE 100 MCG TABLET PO SCH (06:12)
[2021-09-23] MEDS: INSULIN HUMULIN R 100 UNIT/ML 3ML SQ SCH ×4 (06:12→20:22)
[2021-09-23] MEDS: DICLOFENAC SODIUM TP SCH ×2 (09:00→20:15)
[2021-09-23] MEDS: LINACLOTIDE 290 MCG PO SCH (09:00)
[2021-09-23] MEDS: HYDROXYCHLOROQUINE SULFATE 200 MG TAB PO SCH ×2 (09:49→20:14)
[2021-09-23] MEDS: KCL 20 MEQ ERTAB PO PRN ×2 (09:49→18:42)
[2021-09-23] MEDS: METOCLOPRAMIDE 5 MG TABLET PO SCH ×3 (09:49→17:21)
[2021-09-23] MEDS: PANTOPRAZOLE 40 MG TAB DR PO SCH (09:50)
[2021-09-23] MEDS: GABAPENTIN 100 MG CAPSULE PO SCH ×3 (09:51→20:14)
[2021-09-23] MEDS: HYDROMORPHONE 0.5 MG SYG (0.5MG/0.5ML) IVP PRN ×2 (15:19→20:15)
[2021-09-23] MEDS: CEFTRIAXONE 1G VIAL IVP SCH (17:23)
[2021-09-23] MEDS: KETOROLAC 15MG/ML VIAL (15MG/ML) IV PRN (17:32)
[2021-09-23] MEDS: ATORVASTATIN 10 MG TABLET PO SCH (20:14)
[2021-09-23] MEDS: ACETAMINOPHEN 325 MG TAB PO PRN (22:47)
[2021-09-24] VITALS: BP 120/60
[2021-09-24] MEDS: LACTATED RINGERS 1000ML 1,000 ML IV SCH (02:47)
[2021-09-24 04:28] VITALS: BP 118/58
[2021-09-24 05:10] LABS: BASOPHILS % (AUTO) 0.5 % (0.0-5.0); EOSINOPHILS % (AUTO) 4.5 % (0.0-8.0); LYMPHOCYTES % (AUTO) 33.9 % (21.0-51.0); MEAN CORPUSCULAR HEMOGLOBIN 30.3 pg (27.0-33.0); MEAN CORPUSCULAR HGB CONC 31.7 g/dL (32.0-36.0); MEAN CORPUSCULAR VOLUME 95.4 fL (79-99); MONOCYTES % (AUTO) 6.9 % (3.0-13.0); NEUTROPHILS % (AUTO) 53.8 % (40.0-77.0); PLATELET COUNT (AUTO) 231 K/uL (130-400); RED BLOOD CELL COUNT(AUTO) 3.04 MIL/uL (4.00-5.50); RED CELL DISTRIBUTION WIDTH 16.6 % (11.0-15.5); WHITE BLOOD COUNT (AUTO) 7.6 K/uL (4.8-10.8)
[2021-09-24] MEDS: ARTIFICAL TEARS SOL 15 ML OU SCH ×3 (05:13→18:00)
[2021-09-24 05:23] LABS: ALBUMIN 2.2 g/dL (3.5-5.0); BILIRUBIN,TOTAL 0.3 mg/dL (0.2-1.0); CREATININE 0.5 mg/dL (0.5-1.5); MAGNESIUM 2.2 mg/dL (1.80-2.40); POTASSIUM 3.5 mmol/L (3.5-5.1); TOTAL PROTEIN, SERUM 5.7 g/dL (6.0-8.3)
[2021-09-24] MEDS: LEVOTHYROXINE 100 MCG TABLET PO SCH (06:19)
[2021-09-24] MEDS: METOCLOPRAMIDE 5 MG TABLET PO SCH ×3 (06:19→18:31)
[2021-09-24] MEDS: KCL 20 MEQ ERTAB PO PRN (06:19)
[2021-09-24] MEDS: INSULIN HUMULIN R 100 UNIT/ML 3ML SQ SCH ×4 (06:19→21:00)
[2021-09-24 08:00] VITALS: BP 125/63
[2021-09-24] MEDS: LINACLOTIDE 290 MCG PO SCH (09:00)
[2021-09-24] MEDS: DICLOFENAC SODIUM TP SCH ×2 (09:00→21:00)
[2021-09-24] MEDS: GABAPENTIN 100 MG CAPSULE PO SCH ×3 (09:48→20:57)
[2021-09-24] MEDS: HYDROXYCHLOROQUINE SULFATE 200 MG TAB PO SCH ×2 (09:49→20:57)
[2021-09-24] MEDS: PANTOPRAZOLE 40 MG TAB DR PO SCH (09:49)
[2021-09-24] MEDS: HYDROMORPHONE 0.5 MG SYG (0.5MG/0.5ML) IVP PRN ×2 (11:10→20:58)
[2021-09-24 12:16] VITALS: BP 128/64
[2021-09-24 16:07] VITALS: BP 119/56
[2021-09-24] MEDS: KETOROLAC 15MG/ML VIAL (15MG/ML) IV PRN (17:19)
[2021-09-24] MEDS: CEFTRIAXONE 1G VIAL IVP SCH (18:31)
[2021-09-24 19:00] VITALS: BP 123/52
[2021-09-24] MEDS: ATORVASTATIN 10 MG TABLET PO SCH (20:57)
[2021-09-25] VITALS (7 sets, daily range): BP systolic 129–149; BP diastolic 59–75
[2021-09-25] MEDS: KETOROLAC 15MG/ML VIAL (15MG/ML) IV PRN ×4 (01:10→20:34)
[2021-09-25] MEDS: HYDROMORPHONE 0.5 MG SYG (0.5MG/0.5ML) IVP PRN (05:43)
[2021-09-25 05:56] LABS: BASOPHILS % (AUTO) 0.9 % (0.0-5.0); EOSINOPHILS % (AUTO) 4.8 % (0.0-8.0); HEMATOCRIT 29.8 % (36-48); LYMPHOCYTES % (AUTO) 34.7 % (21.0-51.0); MEAN CORPUSCULAR HGB CONC 31.2 g/dL (32.0-36.0); MEAN CORPUSCULAR VOLUME 96.1 fL (79-99); NEUTROPHILS % (AUTO) 52.3 % (40.0-77.0); PLATELET COUNT (AUTO) 228 K/uL (130-400); RED CELL DISTRIBUTION WIDTH 16.5 % (11.0-15.5); WHITE BLOOD COUNT (AUTO) 6.5 K/uL (4.8-10.8)
[2021-09-25] MEDS: ARTIFICAL TEARS SOL 15 ML OU SCH ×4 (06:00→18:00)
[2021-09-25] MEDS: INSULIN HUMULIN R 100 UNIT/ML 3ML SQ SCH ×4 (06:11→21:00)
[2021-09-25 06:17] LABS: ALBUMIN 2.2 g/dL (3.5-5.0); BILIRUBIN,TOTAL 0.3 mg/dL (0.2-1.0); CREATININE 0.3 mg/dL (0.5-1.5); POTASSIUM 3.3 mmol/L (3.5-5.1)
[2021-09-25] MEDS: METOCLOPRAMIDE 5 MG TABLET PO SCH ×3 (07:30→20:56)
[2021-09-25] MEDS: PANTOPRAZOLE 40 MG TAB DR PO SCH (08:37)
[2021-09-25] MEDS: HYDROXYCHLOROQUINE SULFATE 200 MG TAB PO SCH ×2 (08:38→20:34)
[2021-09-25] MEDS: GABAPENTIN 100 MG CAPSULE PO SCH ×3 (08:40→20:34)
[2021-09-25] MEDS: KCL 20 MEQ ERTAB PO PRN ×3 (08:40→14:12)
[2021-09-25] MEDS: LINACLOTIDE 290 MCG PO SCH (09:00)
[2021-09-25] MEDS: ATORVASTATIN 10 MG TABLET PO SCH (20:34)
[2021-09-25] MEDS: DICLOFENAC SODIUM TP SCH (20:35)
[2021-09-25] MEDS: CEFTRIAXONE 1G VIAL IVP SCH (20:37)
[2021-09-26] MEDS: LACTATED RINGERS 1000ML 1,000 ML IV SCH ×2 (01:36→11:22)
[2021-09-26 04:00] VITALS: BP 142/79
[2021-09-26] MEDS: ARTIFICAL TEARS SOL 15 ML OU SCH ×3 (06:00→12:00)
[2021-09-26] MEDS: INSULIN HUMULIN R 100 UNIT/ML 3ML SQ SCH ×3 (06:19→16:30)
[2021-09-26] MEDS: LEVOTHYROXINE 100 MCG TABLET PO SCH (06:23)
[2021-09-26] MEDS: METOCLOPRAMIDE 5 MG TABLET PO SCH ×3 (06:23→16:13)
[2021-09-26 07:52] VITALS: BP 137/71
[2021-09-26] MEDS: LINACLOTIDE 290 MCG PO SCH (08:23)
[2021-09-26] MEDS: DICLOFENAC SODIUM TP SCH (08:23)
[2021-09-26] MEDS: HYDROMORPHONE 0.5 MG SYG (0.5MG/0.5ML) IVP PRN ×2 (08:48→16:14)
[2021-09-26] MEDS: PANTOPRAZOLE 40 MG TAB DR PO SCH (08:48)
[2021-09-26] MEDS: HYDROXYCHLOROQUINE SULFATE 200 MG TAB PO SCH (08:48)
[2021-09-26] MEDS: GABAPENTIN 100 MG CAPSULE PO SCH ×2 (08:49→14:13)
[2021-09-26] MEDS: ACETAMINOPHEN 325 MG TAB PO PRN (10:10)
[2021-09-26] MEDS ORDERED: POLYETHYLENE GLYCOL 3350 17 GM POWD.PACK PO SCH (10:30)
[2021-09-26 12:50] VITALS: BP 130/58
[2021-09-26] MEDS ORDERED: DOCUSATE NA 100MG/10ML UDCUP PO SCH (14:00)
[2021-09-26] MEDS: KETOROLAC 15MG/ML VIAL (15MG/ML) IV PRN (14:13)
[2021-09-26 16:00] VITALS: BP 132/64
[2021-09-26] MEDS: CEFTRIAXONE 1G VIAL IVP SCH (16:13)
== END 2021-09-26 18:05 | DRG 239 ==
LOC: DAH 09:21 → INTOOBSV 09:22 → OBSVTOIN 09:22 → UNDOADMIN 09:22 → DAHIP 09:22 → 3CH 13:33 → DAHIP 13:33 → 3CH 13:33
PROVIDERS: ADMIT Internal Medicine Pulmonary Disease; ATTEND Internal Medicine Pulmonary Disease
PROC: 0Y6M0ZB Detachment at Right Foot, Partial 2nd Ray, Open Approach (ICD-10-PCS; 2021-09-22)
PROC: 0Y6M0ZC Detachment at Right Foot, Partial 3rd Ray, Open Approach (ICD-10-PCS; 2021-09-22)
PROC: 0Y6M0ZD Detachment at Right Foot, Partial 4th Ray, Open Approach (ICD-10-PCS; 2021-09-22)
PROC: 0Y6M0ZF Detachment at Right Foot, Partial 5th Ray, Open Approach (ICD-10-PCS; 2021-09-22)
PROC: 0Y6M0Z9 Detachment at Right Foot, Partial 1st Ray, Open Approach (ICD-10-PCS; principal; 2021-09-22 17:59)
DX: I96 Gangrene, not elsewhere classified (principal); E43 Unspecified severe protein-calorie malnutrition; E03.9 Hypothyroidism, unspecified; Z20.822 Contact with and (suspected) exposure to COVID-19; Z79.899 Other long term (current) drug therapy; Z90.49 Acquired absence of other specified parts of digestive tract; Z87.19 Personal history of other diseases of the digestive system; E87.6 Hypokalemia; Z68.23 Body mass index [BMI] 23.0-23.9, adult
CPT/HCPCS: 36415; 80048; 80053; 82948; 83735; 84100; 84132; 85025; 85610; 87635; 97039; C1894; C9803; G0378; J0690; J0696; J1170; J1885; J2001; J2250; J2704; J2795; J3475; J3490; J7030; J7120

== ENCOUNTER → 2021-10-05 | Outpatient (CLI) | payer OTHER, MEDICARE ==
[~2021-10-05] MED LIST changes: -BACL10TA PO
== END | disposition home or self-care (01) ==
LOC: WHH 08:49
PROVIDERS: ATTEND Podiatrist Foot & Ankle Surgery
DX: T87.89 Other complications of amputation stump (principal); I70.261 Atherosclerosis of native arteries of extremities with gangrene, right leg; E11.621 Type 2 diabetes mellitus with foot ulcer; L97.511 Non-pressure chronic ulcer of other part of right foot limited to breakdown of skin; E11.52 Type 2 diabetes mellitus with diabetic peripheral angiopathy with gangrene; I10 Essential (primary) hypertension; E78.5 Hyperlipidemia, unspecified; E03.9 Hypothyroidism, unspecified; K21.00 Gastro-esophageal reflux disease with esophagitis, without bleeding; K57.40 Diverticulitis of both small and large intestine with perforation and abscess without bleeding; M06.9 Rheumatoid arthritis, unspecified; E66.9 Obesity, unspecified; F33.9 Major depressive disorder, recurrent, unspecified; F17.200 Nicotine dependence, unspecified, uncomplicated; Z68.25 Body mass index [BMI] 25.0-25.9, adult; Z79.899 Other long term (current) drug therapy; Y83.5 Amputation of limb(s) as the cause of abnormal reaction of the patient, or of later complication, without mention of misadventure at the time of the procedure; Y92.238 Other place in hospital as the place of occurrence of the external cause
CPT/HCPCS: A4450; G0463

== ENCOUNTER → 2021-10-19 | Outpatient (CLI) | payer OTHER, MEDICARE ==
[~2021-10-19] MED LIST changes: +LIDOCAINE HCL 4% LTA SOL 4 ML VIAL TP ONE
== END | disposition home or self-care (01) ==
LOC: WHH 10:01
PROVIDERS: ATTEND Podiatrist Foot & Ankle Surgery
DX: T87.81 Dehiscence of amputation stump (principal); I70.261 Atherosclerosis of native arteries of extremities with gangrene, right leg; E11.621 Type 2 diabetes mellitus with foot ulcer; L97.511 Non-pressure chronic ulcer of other part of right foot limited to breakdown of skin; E11.52 Type 2 diabetes mellitus with diabetic peripheral angiopathy with gangrene; I10 Essential (primary) hypertension; E78.5 Hyperlipidemia, unspecified; E03.9 Hypothyroidism, unspecified; K21.00 Gastro-esophageal reflux disease with esophagitis, without bleeding; K57.40 Diverticulitis of both small and large intestine with perforation and abscess without bleeding; M06.9 Rheumatoid arthritis, unspecified; E66.9 Obesity, unspecified; F33.9 Major depressive disorder, recurrent, unspecified; F17.200 Nicotine dependence, unspecified, uncomplicated; Z68.25 Body mass index [BMI] 25.0-25.9, adult; Z79.899 Other long term (current) drug therapy; Y83.5 Amputation of limb(s) as the cause of abnormal reaction of the patient, or of later complication, without mention of misadventure at the time of the procedure
CPT/HCPCS: G0463

== ENCOUNTER → 2021-11-02 | Outpatient (CLI) | payer OTHER, MEDICARE | END | disposition home or self-care (01) | LOC: WHH 09:34 | PROVIDERS: ATTEND Podiatrist Foot & Ankle Surgery | DX: T87.81 Dehiscence of amputation stump (principal); I70.261 Atherosclerosis of native arteries of extremities with gangrene, right leg; E11.621 Type 2 diabetes mellitus with foot ulcer; L97.511 Non-pressure chronic ulcer of other part of right foot limited to breakdown of skin; E11.52 Type 2 diabetes mellitus with diabetic peripheral angiopathy with gangrene; I10 Essential (primary) hypertension; E78.5 Hyperlipidemia, unspecified; E03.9 Hypothyroidism, unspecified; K21.00 Gastro-esophageal reflux disease with esophagitis, without bleeding; K57.40 Diverticulitis of both small and large intestine with perforation and abscess without bleeding; M06.9 Rheumatoid arthritis, unspecified; E66.9 Obesity, unspecified; F33.9 Major depressive disorder, recurrent, unspecified; F17.200 Nicotine dependence, unspecified, uncomplicated; Z68.25 Body mass index [BMI] 25.0-25.9, adult; Z79.899 Other long term (current) drug therapy; Y83.5 Amputation of limb(s) as the cause of abnormal reaction of the patient, or of later complication, without mention of misadventure at the time of the procedure | CPT/HCPCS: A4450; G0463 ==

== ENCOUNTER → 2021-11-16 | Outpatient (CLI) | payer OTHER, MEDICARE | END | disposition home or self-care (01) | LOC: WHH 09:44 | PROVIDERS: ATTEND Podiatrist Foot & Ankle Surgery | DX: T87.81 Dehiscence of amputation stump (principal); I70.261 Atherosclerosis of native arteries of extremities with gangrene, right leg; E11.52 Type 2 diabetes mellitus with diabetic peripheral angiopathy with gangrene; I10 Essential (primary) hypertension; E78.5 Hyperlipidemia, unspecified; E03.9 Hypothyroidism, unspecified; K21.00 Gastro-esophageal reflux disease with esophagitis, without bleeding; K57.40 Diverticulitis of both small and large intestine with perforation and abscess without bleeding; M06.9 Rheumatoid arthritis, unspecified; E66.9 Obesity, unspecified; F33.9 Major depressive disorder, recurrent, unspecified; F17.200 Nicotine dependence, unspecified, uncomplicated; Z68.23 Body mass index [BMI] 23.0-23.9, adult; Z79.899 Other long term (current) drug therapy; Y83.5 Amputation of limb(s) as the cause of abnormal reaction of the patient, or of later complication, without mention of misadventure at the time of the procedure | CPT/HCPCS: G0463 ==

== ENCOUNTER → 2021-12-07 | Outpatient (CLI) | payer OTHER, MEDICARE | END | disposition home or self-care (01) | LOC: WHH 09:03 | PROVIDERS: ATTEND Podiatrist Foot & Ankle Surgery | DX: T87.89 Other complications of amputation stump (principal); I70.261 Atherosclerosis of native arteries of extremities with gangrene, right leg; E11.52 Type 2 diabetes mellitus with diabetic peripheral angiopathy with gangrene; I10 Essential (primary) hypertension; E78.5 Hyperlipidemia, unspecified; E03.9 Hypothyroidism, unspecified; K21.00 Gastro-esophageal reflux disease with esophagitis, without bleeding; K57.40 Diverticulitis of both small and large intestine with perforation and abscess without bleeding; M06.9 Rheumatoid arthritis, unspecified; E66.9 Obesity, unspecified; F33.9 Major depressive disorder, recurrent, unspecified; F17.200 Nicotine dependence, unspecified, uncomplicated; Z68.23 Body mass index [BMI] 23.0-23.9, adult; Z79.899 Other long term (current) drug therapy; Y83.5 Amputation of limb(s) as the cause of abnormal reaction of the patient, or of later complication, without mention of misadventure at the time of the procedure | CPT/HCPCS: G0463 ==

== ENCOUNTER → 2021-12-28 | Outpatient (CLI) | payer OTHER, MEDICARE | END | disposition home or self-care (01) | LOC: WHH 07:52 | PROVIDERS: ATTEND Podiatrist Foot & Ankle Surgery | DX: T87.89 Other complications of amputation stump (principal); I70.261 Atherosclerosis of native arteries of extremities with gangrene, right leg; E11.52 Type 2 diabetes mellitus with diabetic peripheral angiopathy with gangrene; I10 Essential (primary) hypertension; E78.5 Hyperlipidemia, unspecified; E03.9 Hypothyroidism, unspecified; E66.9 Obesity, unspecified; K57.40 Diverticulitis of both small and large intestine with perforation and abscess without bleeding; K21.00 Gastro-esophageal reflux disease with esophagitis, without bleeding; M06.9 Rheumatoid arthritis, unspecified; F33.9 Major depressive disorder, recurrent, unspecified; F17.200 Nicotine dependence, unspecified, uncomplicated; Z68.23 Body mass index [BMI] 23.0-23.9, adult; Z79.899 Other long term (current) drug therapy; Y83.5 Amputation of limb(s) as the cause of abnormal reaction of the patient, or of later complication, without mention of misadventure at the time of the procedure | CPT/HCPCS: 97597 ==

== ENCOUNTER → 2022-10-25 | Outpatient (CLI) | payer OTHER, MEDICARE ==
[~2022-10-25] MED LIST changes: -LIDOCAINE HCL 4% LTA SOL 4 ML VIAL TP ONE
== END | disposition home or self-care (01) ==
LOC: RAH 08:42
PROVIDERS: ATTEND Family Medicine
DX: Z12.31 Encounter for screening mammogram for malignant neoplasm of breast (principal)
CPT/HCPCS: 77067

== ENCOUNTER → 2023-10-29 | Outpatient (CLI) | payer OTHER, MEDICARE ==
[~2023-10-29] MED LIST changes: -DICL100G31 TP; +FAMO20TA8 PO; +FISH1CAP27 PO; +FOLIC ACID PO; -GABA-529 PO; -LINA290C PO; +METH2.5T6 PO; -PANT20TA18 PO; +PRED5TAB PO; +PREG50CA64 PO; +PROB1TAB2 PO; -TRAM-355 PO; +VITAMIN D3 PO
== END | disposition home or self-care (01) ==
LOC: RAH 10:22
PROVIDERS: ATTEND Family Medicine
DX: Z12.31 Encounter for screening mammogram for malignant neoplasm of breast (principal); R92.323 Mammographic fibroglandular density, bilateral breasts; N63.41 Unspecified lump in right breast, subareolar
CPT/HCPCS: 77067

== ENCOUNTER → 2024-02-27 | Outpatient (CLI) | payer OTHER, MEDICARE | END | disposition home or self-care (01) | LOC: RAH 08:48 | PROVIDERS: ATTEND Family Medicine | DX: K76.0 Fatty (change of) liver, not elsewhere classified (principal); R79.89 Other specified abnormal findings of blood chemistry; R19.00 Intra-abdominal and pelvic swelling, mass and lump, unspecified site | CPT/HCPCS: 76700; 76856 ==